=== PATIENT | female | born 1935 | race Caucasian/White ===

== ENCOUNTER 2016-10-17 14:03 | Inpatient (IN) | payer MEDICARE, BC ==
[2016-10-17] MEDS ORDERED: Albuterol/Ipratropium 3.0-0.5 MG/3 ML Neb Soln NEB PRN (14:59)
[2016-10-17] MEDS ORDERED: Acetaminophen 325 MG Tab PO PRN (14:59)
[2016-10-17] MEDS ORDERED: Ondansetron 4 MG/2 ML SDV IVPUSH PRN (14:59)
[2016-10-17] MEDS ORDERED: Diltiazem 25 MG/5 ML SDV IVPUSH ONE (15:14)
[2016-10-17] MEDS ORDERED: Diltiazem 100 MG in Sodium Chloride 0.9% 100 ML IV SCH (15:15)
[2016-10-17] MEDS ORDERED: Albuterol 8 GM Inhaler INH PRN (15:15)
--- NOTE | 2016-10-17 15:32 | PCM.HP ---
H&P History of Present Illness - General Admit Problem/Dx: Admission Diagnosis/Problem Admission Diagnosis/Problem Atrial fibrillation with normal ventricular rate - History of Present Illness Initial Comments - Free Text/Narative: 81 yo female with pmh of atrial fibrillation. She is normal rate controlled with metoprolol and diltiazem. She ran out of her diltiazem and has not taken any in the past two days. Early this morning she reported shortness of breath and palpitations. She denies any cough, chest pain or fevers. She was seen at [facility] an noted to have a heart rate of 160s with a rhythm of atrial fibrillation. - Related Data Allergies/Adverse Reactions: Allergies Allergy/AdvReac Type Severity Reaction Status Date / Time levofloxacin [From LevMabaya] Allergy Other Verified 01/18/15 14:40 Home Medications: Home Meds Niacin 500 mg PO BID 01/18/15 [History] Diltiazem [Cardizem CD] 240 mg PO DAILY #30 cap.cd 01/19/15 [Rx] Albuterol Sulfate [Proair Respiclick] 90 mcg IH QID PRN 10/17/16 [History] Apixaban [Eliquis] 5 mg PO BID 10/17/16 [History] Budesonide/Formoterol Fumarate [Symbicort 160-4.5 Mcg Inhaler] 2 puff INH BID [History] Cranberry 500 mg PO BEDTIME 10/17/16 [History] L.acidoph,Paracasei, B.lactis [Probiotic] 1 cap PO DAILY 10/17/16 [History] Metoprolol Succinate [Toprol XL] 25 mg PO DAILY 10/17/16 [History] Mirabegron [Myrbetriq] 25 mg PO BEDTIME 10/17/16 [History] Pantoprazole [ProTONIX] 40 mg PO DAILY 10/17/16 [History] Social & Family History - Tobacco Use Smoking Status *Q: Never Smoker Second Hand Smoke Exposure: No - Recreational Drug Use Recreational Drug Use: No H&P Review of Systems - Review of Systems: Review Of Systems: ROS reveals no pertinent complaints other than HPI. Exam - Exam Exam: See Below - Vital Signs Weight: 125 kg - Exam General: Alert, Oriented, 4 HEENT: Mucosa Moist & [place] Neck: Supple, Trachea Midline, 2 Lungs: Clear to Auscultation, Normal Respiratory Effort Cardiovascular: Regular Rate, Regular Rhythm GI/Abdominal Exam: Normal Bowel Sounds, Soft, Non-Tender, No Distention Extremities: Non-Tender, No Pedal Edema Skin: Warm, Dry, Intact - Patient Data Lab Results Last 24 hrs: Laboratory Results - last 24 hr 10/17/16 Range/Units 15:06 WBC 7.42 (4.0-11.0) K/uL RBC 4.14 L (4.30-5.90) M/uL Hgb 12.7 (12.0-16.0) g/dL Hct 38.0 (36.0-46.0) % MCV 91.8 (80.0-98.0) fL MCH 30.7 (27.0-32.0) pg MCHC 33.4 (31.0-37.0) g/dL RDW Std Deviation 50.8 (28.0-62.0) fl RDW Coeff of Kristen 15 (11.0-15.0) % Plt Count 213 (150-400) K/uL MPV 10.00 (7.40-12.00) fL Neut % (Auto) 61.9 (48.0-80.0) % Lymph % (Auto) 26.8 (16.0-40.0) % [place] % (Auto) 10.2 (0.0-15.0) % Eos % (Auto) 0.8 (0.0-7.0) % Baso % (Auto) 0.3 (0.0-1.5) % Neut # (Auto) 4.6 (1.4-5.7) K/uL Lymph # (Auto) 2.0 (0.6-2.4) K/uL [place] # (Auto) 0.8 (0.0-0.8) K/uL Eos # (Auto) 0.1 (0.0-0.7) K/uL Baso # (Auto) 0.0 (0.0-0.1) K/uL Nucleated RBC % 0.0 /100WBC Nucleated RBCs # 0 K/uL Result Diagrams: 10/17/16 15:06 *Q Meaningful Use (ADM) - VTE *Q VTE Criteria *Q: - Stroke *Q Stroke Criteria *Q: - AMI *Q AMI Criteria *Q: Problem List Initiated/Reviewed/Updated: Yes Orders Last 24hrs: Active Orders 24 hr Category Date Time Status Patient Status [ADT] Routine ADT 10/17/16 14:59 Ordered Antiembolic Devices [RC] PER UNIT ROUTINE Care 10/17/16 15:00 Ordered Cardiac Monitoring [RC] . DIRECTED Care 10/17/16 14:28 Active Cardiac Monitoring [RC] CONTINUOUS Care 10/17/16 15:00 Ordered EKG Documentation Completion [RC] STAT Care 10/17/16 14:28 Active Intake and Output [RC] QSHIFT Care 10/17/16 15:00 Ordered Oxygen Therapy [RC] PRN Care 10/17/16 14:59 Ordered RT Aerosol Therapy [RC] ASDIRECTED Care 10/17/16 15:01 Ordered VTE/DVT Education [RC] PER UNIT ROUTINE Care 10/17/16 14:59 Ordered Vital Signs [RC] Q4H Care 10/17/16 14:59 Ordered Regular Diet [DIET] Diet 10/17/16 Breakfast Ordered Chest 1V Frontal [CR] Routine Exams 10/17/16 14:35 Ordered BASIC METABOLIC PANEL,BMP [CHEM] AM Lab 10/18/16 05:11 Ordered BASIC METABOLIC PANEL,BMP [CHEM] AM Lab 10/19/16 05:11 Ordered BASIC METABOLIC PANEL,BMP [CHEM] AM Lab 10/20/16 05:11 Ordered CBC W/O DIFF,HEMOGRAM [HEME] AM Lab 10/18/16 05:11 Ordered CBC W/O DIFF,HEMOGRAM [HEME] AM Lab 10/19/16 05:11 Ordered CBC W/O DIFF,HEMOGRAM [HEME] AM Lab 10/20/16 05:11 Ordered CMP [COMPREHENSIVE METABOLIC PN,CMP] [CHEM] Routine Lab 10/17/16 14:32 Ordered DIGOXIN [CHEM] Routine Lab 10/17/16 14:50 Ordered MAGNESIUM [CHEM] Routine Lab 10/17/16 14:32 Ordered TROPONIN I [CHEM] Stat Lab 10/17/16 14:37 Ordered Acetaminophen [Tylenol] Med 10/17/16 14:59 Ordered 650 mg PO Q4H PRN Albuterol Sulfate [Proair Respiclick] Med 10/17/16 15:15 Ordered 90 mcg IH QID PRN Albuterol/Ipratropium [DuoNeb 3.0-0.5 MG/3 ML] Med 10/17/16 14:59 Ordered 3 ml NEB Q4HRRT PRN Apixaban [Eliquis] Med 10/17/16 21:00 Ordered 5 mg PO BID Budesonide/Formoterol Fumarate Med 10/17/16 21:00 Ordered 2 puff INH BID Diltiazem 100 MG in NS Adv@ 5 MG/HR(100ml) Med 10/17/16 15:15 Ordered Diltiazem [Cardizem] 100 mg Sodium Chloride 0.9% [Normal Saline] 100 ml IV TITRATE Diltiazem [Cardizem CD] Med 10/17/16 15:15 Ordered 240 mg PO DAILY Metoprolol Succinate [Toprol XL] Med 10/18/16 09:00 Ordered 25 mg PO DAILY Mirabegron Med 10/17/16 21:00 Ordered 25 mg PO BEDTIME Niacin Med 10/17/16 21:00 Ordered 500 mg PO BID Ondansetron [Zofran] Med 10/17/16 14:59 Ordered 4 mg IVPUSH Q4H PRN Pantoprazole [ProTONIX] Med 10/18/16 09:00 Ordered 40 mg PO DAILY Sodium Chloride 0.9% [Normal Saline] 1,000 ml Med 10/17/16 15:00 Ordered IV ASDIRECTED Sequential Compression Device [OM.PC] Per Unit Routine Oth 10/17/16 15:00 Ordered Resuscitation Status Routine Resus Stat 10/17/16 14:59 Ordered Medication Orders Acetaminophen (Tylenol) 650 mg PO Q4H PRN PRN Reason: Pain (Mild 1-3)/fever Albuterol/Ipratropium (Duoneb 3.0-0.5 Mg/3 Ml) 3 ml NEB Q4HRRT PRN PRN Reason: Shortness Of Breath/wheezing Sodium Chloride (Normal Saline) 1,000 mls @ 100 mls/hr IV ASDIRECTED ALFIE Diltiazem HCl 100 mg/ Sodium (Chloride) 100 mls @ 5 mls/hr IV TITRATE ALFIE; 5 MG /HR PRN Reason: Protocol Ondansetron HCl (Zofran) 4 mg IVPUSH Q4H PRN PRN Reason: Nausea Assessment/Plan Comment:: 81 yo female with pmh of atrial fibrillation who presents with a.fib with RVR likely 2/2 to the discontinuation of diltiazem. Will restart diltiazem and check EKG, CXR, CBC, and CMP.
[2016-10-17] MEDS: Sodium Chloride 0.9% 1,000 ML IV SCH (15:33)
[2016-10-17] MEDS ORDERED: Sodium Chloride 0.9% 10 ML Syringe FLUSH PRN (15:34)
[2016-10-17] MEDS ORDERED: Sodium Chloride 0.9% 2.5 ML Syringe FLUSH PRN (15:34)
[2016-10-17] MEDS: Diltiazem 120 MG Cap.CD PO SCH (15:36)
--- NOTE | 2016-10-17 15:40 | CR ---
EXAMINATION: Portable chest radiograph. HISTORY: A. Fib. Comparison: CT dated 01/19/2015 and radiographs dated 12/19/2012. FINDINGS: The trachea is midline. The cardiomediastinal silhouette is stable. There is a stable prominence of t he right hilar region. Chronic interstitial prominence also again noted. No pulmonary infiltrates, ef fusions or pneumothorax. Osseous structures appear unremarkable. IMPRESSION: Chronic interstitial changes without definite acute cardiopulmonary finding.
[2016-10-17 15:45] LABS: CHLORIDE,CL 104 mmol/L (98-110); SODIUM,NA 137 mmol/L (136-146)
[2016-10-17] MEDS ORDERED: Magnesium Sulfate/Water 2 GM in Premix Bag 1 BAG IV ONE (16:06)
[2016-10-17] MEDS: Apixaban 5 MG Tab PO SCH (20:07)
[2016-10-17] MEDS: Budesonide/Formoterol Fumarate 2 PUFF INH SCH (20:37)
[2016-10-17] MEDS: Niacin 500 MG Tab PO SCH (21:38)
[2016-10-18] MEDS: Sodium Chloride 0.9% 1,000 ML IV SCH (01:25)
[2016-10-18 05:45] LABS: CHLORIDE,CL 107 mmol/L (98-110); SODIUM,NA 139 mmol/L (136-146)
--- NOTE | 2016-10-18 06:21 | PCM.PN ---
- Review of Systems Systems Review Comment:: shortness of breath improving - Patient Data Vitals - Most Recent: Last Vital Signs Temp 36.6 C 10/18/16 04:00 Pulse 116 H 10/17/16 15:36 Resp 22 H 10/18/16 04:00 BP 135/79 10/18/16 04:00 Pulse Ox 87 L 10/18/16 04:00 Weight - Most Recent: 125 kg I&O - Last 24 Hours: Intake & Output 10/17/16 10/17/16 10/18/16 14:59 22:59 06:59 Intake Total 50 4 Output Total 2014 Balance 50 139 Lab Results Last 24 Hours: Laboratory Results - last 24 hr 10/17/16 10/17/16 10/17/16 Range/Units 15:06 15:06 15:06 WBC 7.42 (4.0-11.0) K/uL RBC 4.14 L (4.30-5.90) M/uL Hgb 12.7 (12.0-16.0) g/dL Hct 38.0 (36.0-46.0) % MCV 91.8 (80.0-98.0) fL MCH 30.7 (27.0-32.0) pg MCHC 33.4 (31.0-37.0) g/dL RDW Std Deviation 50.8 (28.0-62.0) fl RDW Coeff of Kristen 15 (11.0-15.0) % Plt Count 213 (150-400) K/uL MPV 10.00 (7.40-12.00) fL Neut % (Auto) 61.9 (48.0-80.0) % Lymph % (Auto) 26.8 (16.0-40.0) % [place] % (Auto) 10.2 (0.0-15.0) % Eos % (Auto) 0.8 (0.0-7.0) % Baso % (Auto) 0.3 (0.0-1.5) % Neut # (Auto) 4.6 (1.4-5.7) K/uL Lymph # (Auto) 2.0 (0.6-2.4) K/uL [place] # (Auto) 0.8 (0.0-0.8) K/uL Eos # (Auto) 0.1 (0.0-0.7) K/uL Baso # (Auto) 0.0 (0.0-0.1) K/uL Nucleated RBC % 0.0 /100WBC Nucleated RBCs # 0 K/uL Sodium 137 (136-146) mmol/L Potassium 4.3 (3.5-5.1) mmol/L Chloride 104 (98-110) mmol/L Carbon Dioxide 25 (21-31) mmol/L BUN 16 (6.0-23.0) mg/dL Creatinine 0.8 (0.6-1.5) mg/dL Est Cr Clr Drug Dosing 51.63 mL/min Estimated GFR (MDRD) > 60.0 ml/min Glucose 93 (60-110) mg/dL Calcium 9.9 (8.8-10.8) mg/dL Magnesium 1.3 L (1.5-2.3) mEq/L Total Bilirubin 0.9 (0.1-1.5) mg/dL AST 58 H (5-40) IU/L ALT 62 H (8-54) IU/L Alkaline Phosphatase 92 (40-150) Troponin I < 0.10 (0.0-0.29) NG/ML Total Protein 6.6 (6.0-8.0) g/dL Albumin 3.4 (3.4-4.8) g/dL Globulin 3.2 (2.0-3.5) g/dL Albumin/Globulin Ratio 1.1 L (1.3-2.8) Digoxin (0.8-2.0) ng/mL 10/17/16 10/18/16 10/18/16 Range/Units 15:06 04:50 04:50 WBC 7.54 (4.0-11.0) K/uL RBC 4.33 (4.30-5.90) M/uL Hgb 13.2 (12.0-16.0) g/dL Hct 40.1 (36.0-46.0) % MCV 92.6 (80.0-98.0) fL MCH 30.5 (27.0-32.0) pg MCHC 32.9 (31.0-37.0) g/dL RDW Std Deviation 51.2 (28.0-62.0) fl RDW Coeff of Kristen 15 (11.0-15.0) % Plt Count 211 (150-400) K/uL MPV 10.30 (7.40-12.00) fL Neut % (Auto) (48.0-80.0) % Lymph % (Auto) (16.0-40.0) % [place] % (Auto) (0.0-15.0) % Eos % (Auto) (0.0-7.0) % Baso % (Auto) (0.0-1.5) % Neut # (Auto) (1.4-5.7) K/uL Lymph # (Auto) (0.6-2.4) K/uL [place] # (Auto) (0.0-0.8) K/uL Eos # (Auto) (0.0-0.7) K/uL Baso # (Auto) (0.0-0.1) K/uL Nucleated RBC % 0.0 /100WBC Nucleated RBCs # 0 K/uL Sodium 139 (136-146) mmol/L Potassium 4.2 (3.5-5.1) mmol/L Chloride 107 (98-110) mmol/L Carbon Dioxide 23 (21-31) mmol/L BUN 16 (6.0-23.0) mg/dL Creatinine 0.7 (0.6-1.5) mg/dL Est Cr Clr Drug Dosing 59.01 mL/min Estimated GFR (MDRD) > 60.0 ml/min Glucose 101 (60-110) mg/dL Calcium 9.4 (8.8-10.8) mg/dL Magnesium (1.5-2.3) mEq/L Total Bilirubin (0.1-1.5) mg/dL AST (5-40) IU/L ALT (8-54) IU/L Alkaline Phosphatase (40-150) Troponin I (0.0-0.29) NG/ML Total Protein (6.0-8.0) g/dL Albumin (3.4-4.8) g/dL Globulin (2.0-3.5) g/dL Albumin/Globulin Ratio (1.3-2.8) Digoxin < 0.15 L (0.8-2.0) ng/mL Med Orders - Current: Current Medications Acetaminophen (Tylenol) 650 mg PO Q4H PRN PRN Reason: Pain (Mild 1-3)/fever Albuterol (Ventolin Hfa) 8 gm INH QID PRN PRN Reason: Wheezing Albuterol/Ipratropium (Duoneb 3.0-0.5 Mg/3 Ml) 3 ml NEB Q4HRRT PRN PRN Reason: Shortness Of Breath/wheezing Apixaban (Eliquis) 5 mg PO BID [facility] Last Admin: 10/17/16 20:07 Dose: 5 mg Diltiazem HCl (Cardizem Cd) 240 mg PO DAILY [facility] Last Admin: 10/17/16 15:36 Dose: 240 mg Diltiazem HCl 100 mg/ Sodium (Chloride) 100 mls @ 5 mls/hr IV TITRATE ALFIE; 5 MG /HR PRN Reason: Protocol Last Titration: 10/18/16 04:40 Dose: 5 mg/hr, 5 mls/hr Metoprolol Succinate (Toprol Xl) 50 mg PO DAILY [facility] Niacin (Niacin) 500 mg PO BID [facility] Last Admin: 10/17/16 21:38 Dose: 500 mg Ondansetron HCl (Zofran) 4 mg IVPUSH Q4H PRN PRN Reason: Nausea Pantoprazole Sodium (Protonix) 40 mg PO DAILY [facility] Budesonide/Formoterol Fumarate 2 Puff 1 each INH BID [facility] Last Admin: 10/17/16 20:37 Dose: 1 each Mirabegron 25 Mg 1 each PO BEDTIME [facility] Last Admin: 10/17/16 21:23 Dose: Not Given Sodium Chloride (Saline Flush) 10 ml FLUSH ASDIRECTED PRN PRN Reason: Keep Vein Open Sodium Chloride (Saline Flush) 2.5 ml FLUSH ASDIRECTED PRN PRN Reason: Keep Vein Open Discontinued Medications Diltiazem HCl (Diltiazem) 10 mg IVPUSH ONETIME ONE Stop: 10/17/16 15:15 Last Admin: 10/17/16 15:24 Dose: 10 mg Sodium Chloride (Normal Saline) 1,000 mls @ 100 mls/hr IV ASDIRECTED [facility] Last Admin: 10/18/16 01:25 Dose: 100 mls/hr Magnesium Sulfate 2 gm/ Premix 50 mls @ 50 mls/hr IV ONETIME ONE Stop: 10/17/16 17:05 Last Admin: 10/17/16 16:38 Dose: 50 mls/hr Metoprolol Succinate (Toprol Xl) 25 mg PO DAILY ALFIE - Exam General: Alert, Oriented Lungs: Clear to Auscultation, Normal Respiratory Effort Cardiovascular: Regular Rate, Irregular Rhythm Extremities: Normal Inspection, No Pedal Edema - Problem List Review Problem List Initiated/Reviewed/Updated: Yes - My Orders Last 24 Hours: My Active Orders 10/17/16 14:28 Cardiac Monitoring [RC] . DIRECTED 10/17/16 14:59 Patient Status [ADT] Routine Oxygen Therapy [RC] PRN Vital Signs [RC] Q1H Acetaminophen [Tylenol] 650 mg PO Q4H PRN Albuterol/Ipratropium [DuoNeb 3.0-0.5 MG/3 ML] 3 ml NEB Q4HRRT PRN Ondansetron [Zofran] 4 mg IVPUSH Q4H PRN Resuscitation Status Routine 10/17/16 15:00 Antiembolic Devices [RC] PER UNIT ROUTINE Cardiac Monitoring [RC] Q8H Intake and Output [RC] Q12H Sequential Compression Device [OM.PC] Per Unit Routine 10/17/16 15:01 RT Aerosol Therapy [RC] ASDIRECTED 10/17/16 15:15 Albuterol [Ventolin HFA] 8 gm INH QID PRN Diltiazem [Cardizem CD] 240 mg PO DAILY Diltiazem [Cardizem] 100 mg Sodium Chloride 0.9% [Normal Saline] 100 ml IV TITRATE 10/17/16 15:34 Sodium Chloride 0.9% [Saline Flush] 10 ml FLUSH ASDIRECTED PRN Sodium Chloride 0.9% [Saline Flush] 2.5 ml FLUSH ASDIRECTED PRN Peripheral IV Insertion Adult [OM.PC] Routine 10/17/16 21:00 Apixaban [Eliquis] 5 mg PO BID Niacin 500 mg PO BID Patient's Own Medication [Ptom] 1 each INH BID Patient's Own Medication [Ptom] 1 each PO BEDTIME 10/17/16 Breakfast Regular Diet [DIET] 10/18/16 06:16 MAGNESIUM [CHEM] Routine 10/18/16 09:00 Metoprolol Succinate [Toprol XL] 50 mg PO DAILY Pantoprazole [ProTONIX] 40 mg PO DAILY 10/19/16 05:11 BASIC METABOLIC PANEL,BMP [CHEM] AM CBC W/O DIFF,HEMOGRAM [HEME] AM 10/20/16 05:11 BASIC METABOLIC PANEL,BMP [CHEM] AM CBC W/O DIFF,HEMOGRAM [HEME] AM - Plan Plan:: 81 yo female with pmh of atrial fibrillation who presents with a.fib with RVR likely 2/2 to the discontinuation of diltiazem. On diltiazem will attempt to wean off, will increase oral metoprolol and diltiazem continue Eliquis CXR shows bibasilar infiltrates concerning for pulmonary edema will treat with IV lasix
[2016-10-18] MEDS: Apixaban 5 MG Tab PO SCH ×2 (08:40→20:30)
[2016-10-18] MEDS: Pantoprazole 40 MG Tab.CR PO SCH (08:40)
[2016-10-18] MEDS: Diltiazem 120 MG Cap.CD PO SCH (08:40)
[2016-10-18] MEDS: Metoprolol Succinate 25 MG Tab.ER PO SCH (08:42)
[2016-10-18] MEDS ORDERED: Metoprolol Succinate 25 MG Tab.ER PO SCH (09:00)
--- NOTE | 2016-10-18 09:38 | CR ---
EXAMINATION: Two-view chest (PA and Lateral views). HISTORY: Increased O2 requirement. FINDINGS: The trachea is midline. The heart is borderline in size. There are increasing bibasilar infiltrates n oted. Trace bilateral pleural effusions are not excluded. No pneumothorax. Osseous structures appear osteopenic. IMPRESSION: Moderate bibasilar infiltrates, possibly representing developing pneumonia versus edema.
[2016-10-18] MEDS: Budesonide/Formoterol Fumarate 2 PUFF INH SCH ×2 (09:43→20:25)
[2016-10-18] MEDS: Niacin 500 MG Tab PO SCH ×2 (10:04→20:30)
[2016-10-18] MEDS ORDERED: Furosemide 40 MG/4 ML VIAL IVPUSH ONE (10:16)
[2016-10-18] MEDS ORDERED: Magnesium Sulfate/Water 2 GM in Premix Bag 1 BAG IV ONE (10:17)
[2016-10-19 06:12] LABS: CHLORIDE,CL 104 mmol/L (98-110); SODIUM,NA 138 mmol/L (136-146)
[2016-10-19] MEDS: Niacin 500 MG Tab PO SCH (08:17)
[2016-10-19] MEDS: Diltiazem 120 MG Cap.CD PO SCH (08:17)
[2016-10-19] MEDS: Metoprolol Succinate 25 MG Tab.ER PO SCH (08:18)
[2016-10-19 08:19] VITALS: BP 121/73
[2016-10-19] MEDS: Apixaban 5 MG Tab PO SCH (08:19)
[2016-10-19] MEDS: Pantoprazole 40 MG Tab.CR PO SCH (08:19)
[2016-10-19] MEDS ORDERED: Furosemide 40 MG Tab PO ONE (08:35)
[2016-10-19] MEDS ORDERED: Potassium Chloride 20 MEQ Tab.ER PO ONE (08:35)
[2016-10-19] MEDS: Budesonide/Formoterol Fumarate 2 PUFF INH SCH (09:25)
--- NOTE | 2016-10-19 10:26 | PCM.DCSUM1 ---
Discharge Summary - Discharge Data Discharge Date: 10/19/16 Discharge Disposition: Home, Self-Care 01 Condition: Good - Patient Summary/Data Hospital Course: Admission diagnosis Atrial fibrillation with RVR Hospital course: 81 yo female with pmh of atrial fibrillation who presented with shortness of breath and palpitations. She ran out of her diltiazem and has not taken any in the past two days. She is normally rate controlled with metoprolol and diltiazem and takes Eliquis. She was seen at [facility] noted to have a heart rate of 160s with a rhythm of atrial fibrillation. She was directly admitted to the ICU and started on a diltiazem drip with IV fluids. She was given IV magnesium due to low magnesium level of 1.3. Her oral diltiazem was restarted and she was weaned of her diltiazem drip. She did develop worsening shortness of breath and repeat CXR was consistent with pulmonary edema. She was given lasix with quick improvement in her dsypnea. Echocardiogram was taken but report is pending at time of discharge. Patient this morning is requesting discharge home. She was discharged home to have follow up with Dr. Lomeli. She is satting 92% on room air at time discharge. - Patient Instructions Diet: Usual Diet as Tolerated Activity: As Tolerated - Discharge Plan Home Medications: Home Meds Niacin 500 mg PO BID 01/18/15 [History] Diltiazem [Cardizem CD] 240 mg PO DAILY #30 cap.cd 01/19/15 [Rx] Albuterol Sulfate [Proair Respiclick] 90 mcg IH QID PRN 10/17/16 [History] Apixaban [Eliquis] 5 mg PO BID 10/17/16 [History] Budesonide/Formoterol Fumarate [Symbicort 160-4.5 Mcg Inhaler] 2 puff INH BID [History] Cranberry 500 mg PO BEDTIME 10/17/16 [History] L.acidoph,Paracasei, B.lactis [Probiotic] 1 cap PO DAILY 10/17/16 [History] Metoprolol Succinate [Toprol XL] 25 mg PO DAILY 10/17/16 [History] Mirabegron [Myrbetriq] 25 mg PO BEDTIME 10/17/16 [History] Pantoprazole [ProTONIX] 40 mg PO DAILY 10/17/16 [History] Patient Handouts: Atrial Fibrillation, [id number] Referrals: [facility] [Outside] Reinier Rodriguez MD [Physician] - 10/27/16 10:00 am - Patient Data Vitals - Most Recent: Last Vital Signs Temp 37.1 C 10/19/16 08:00 Pulse 95 10/19/16 08:18 Resp 16 10/19/16 08:00 BP 121/73 10/19/16 08:18 Pulse Ox 95 10/19/16 09:00 Weight - Most Recent: 60 kg I&O - Last 24 hours: Intake & Output 10/18/16 10/19/16 10/19/16 22:59 06:59 14:59 Intake Total 700 450 Output Total 2950 600 Balance -2250 -150 Lab Results - Last 24 hrs: Laboratory Results - last 24 hr 10/19/16 10/19/16 Range/Units 05:28 05:28 WBC 6.72 (4.0-11.0) K/uL RBC 4.20 L (4.30-5.90) M/uL Hgb 12.9 (12.0-16.0) g/dL Hct 38.3 (36.0-46.0) % MCV 91.2 (80.0-98.0) fL MCH 30.7 (27.0-32.0) pg MCHC 33.7 (31.0-37.0) g/dL RDW Std Deviation 49.7 (28.0-62.0) fl RDW Coeff of Kristen 15 (11.0-15.0) % Plt Count 192 (150-400) K/uL MPV 10.00 (7.40-12.00) fL Nucleated RBC % 0.0 /100WBC Nucleated RBCs # 0 K/uL Sodium 138 (136-146) mmol/L Potassium 3.5 (3.5-5.1) mmol/L Chloride 104 (98-110) mmol/L Carbon Dioxide 26 (21-31) mmol/L BUN 16 (6.0-23.0) mg/dL Creatinine 0.6 (0.6-1.5) mg/dL Est Cr Clr Drug Dosing 69.22 mL/min Estimated GFR (MDRD) > 60.0 ml/min Glucose 102 (60-110) mg/dL Calcium 9.4 (8.8-10.8) mg/dL Med Orders - Current: Current Medications Acetaminophen (Tylenol) 650 mg PO Q4H PRN PRN Reason: Pain (Mild 1-3)/fever Albuterol (Ventolin Hfa) 8 gm INH QID PRN PRN Reason: Wheezing Albuterol/Ipratropium (Duoneb 3.0-0.5 Mg/3 Ml) 3 ml NEB Q4HRRT PRN PRN Reason: Shortness Of Breath/wheezing Apixaban (Eliquis) 5 mg PO BID [facility] Last Admin: 10/19/16 08:19 Dose: 5 mg Diltiazem HCl (Cardizem Cd) 240 mg PO DAILY [facility] Last Admin: 10/19/16 08:17 Dose: 240 mg Diltiazem HCl 100 mg/ Sodium (Chloride) 100 mls @ 5 mls/hr IV TITRATE ALFIE; 5 MG /HR PRN Reason: Protocol Last Titration: 10/18/16 09:00 Dose: 0 mg/hr, 0 mls/hr Metoprolol Succinate (Toprol Xl) 50 mg PO DAILY [facility] Last Admin: 10/19/16 08:18 Dose: 50 mg Niacin (Niacin) 500 mg PO BID [facility] Last Admin: 10/19/16 08:17 Dose: 500 mg Ondansetron HCl (Zofran) 4 mg IVPUSH Q4H PRN PRN Reason: Nausea Pantoprazole Sodium (Protonix) 40 mg PO DAILY [facility] Last Admin: 10/19/16 08:19 Dose: 40 mg Budesonide/Formoterol Fumarate 2 Puff 1 each INH BID [facility] Last Admin: 10/19/16 09:25 Dose: 1 each Mirabegron 25 Mg 1 each PO BEDTIME [facility] Last Admin: 10/18/16 22:41 Dose: 1 each Sodium Chloride (Saline Flush) 10 ml FLUSH ASDIRECTED PRN PRN Reason: Keep Vein Open Sodium Chloride (Saline Flush) 2.5 ml FLUSH ASDIRECTED PRN PRN Reason: Keep Vein Open Discontinued Medications Diltiazem HCl (Diltiazem) 10 mg IVPUSH ONETIME ONE Stop: 10/17/16 15:15 Last Admin: 10/17/16 15:24 Dose: 10 mg Furosemide (Lasix) 40 mg IVPUSH NOW ONE Stop: 10/18/16 10:17 Last Admin: 10/18/16 10:32 Dose: 40 mg Furosemide (Lasix) 40 mg PO ONETIME ONE Stop: 10/19/16 08:36 Last Admin: 10/19/16 08:44 Dose: 40 mg Sodium Chloride (Normal Saline) 1,000 mls @ 100 mls/hr IV ASDIRECTED [facility]FIE Last Admin: 10/18/16 01:25 Dose: 100 mls/hr Magnesium Sulfate 2 gm/ Premix 50 mls @ 50 mls/hr IV ONETIME ONE Stop: 10/17/16 17:05 Last Admin: 10/17/16 16:38 Dose: 50 mls/hr Magnesium Sulfate 2 gm/ Premix 50 mls @ 50 mls/hr IV ONETIME ONE Stop: 10/18/16 11:16 Last Admin: 10/18/16 10:33 Dose: 50 mls/hr Metoprolol Succinate (Toprol Xl) 25 mg PO DAILY [facility] Potassium Chloride (Klor-Con M20) 40 meq PO ONETIME ONE Stop: 10/19/16 08:36 Last Admin: 10/19/16 08:44 Dose: 40 meq *Q Meaningful Use (DIS) - VTE *Q VTE Criteria *Q: - Stroke *Q Stroke Criteria *Q: - AMI *Q AMI Criteria *Q:
--- NOTE | 2016-10-21 11:19 | ECHO ---
EXAM DATE: 10/17/16 PATIENT'S AGE: 81 The echocardiogram report can be seen in this patient's EMR (Electronic Medical Record) in the Reports section. The report has also been scanned into PACS. CHUCK
== END 2016-10-19 11:45 | disposition home or self-care (01) | DRG 309 ==
LOC: INTOOBSV 14:03 → MW.ICU 14:03 → OBSVTOIN 14:59 → MW.MS 10-18 16:15
PROVIDERS: ADMIT Internal Medicine; ATTEND Internal Medicine
DX: I48.91 Unspecified atrial fibrillation (principal); J81.1 Chronic pulmonary edema; Z79.899 Other long term (current) drug therapy; Z88.8 Allergy status to other drugs, medicaments and biological substances
CPT/HCPCS: 36415; 71010; 71010-26; 71020; 71020-26; 80048; 80053; 80162; 83735; 84484; 85025; 85027; 93005; 93306; 94640; 94664; A9270-GY; J1940; J3475; J3490; J7030; J7040

== ENCOUNTER 2016-12-08 19:05 | Observation (INO) | payer MEDICARE, BC ==
--- NOTE | 2016-12-08 19:17 | EDM.PDOC ---
ED HPI GENERAL MEDICAL PROBLEM - General Chief Complaint: Neurological Problem Stated Complaint: DIZZY/STOMACH PAIN/VOMITING Time Seen by Provider: 12/08/16 19:12 - History of Present Illness INITIAL COMMENTS - FREE TEXT/NARRATIVE: HISTORY AND PHYSICAL: History of present illness: Patient 31-year-old female history of atrial fibrillation and presented with a concern of dizziness with nausea and vomiting she denies abdominal pain chest pain other concern she states she occasionally has shortness of breath she denies any on arrival she's had prior cholecystectomy and hysterectomy. Review of systems: As per history of present illness and below otherwise all systems reviewed and negative. Past medical history: As per history of present illness and as reviewed below otherwise noncontributory. Surgical history: As per history of present illness and as reviewed below otherwise noncontributory. Social history: No reported history of drug or alcohol abuse. Family history: As per history of present illness and as reviewed below otherwise noncontributory. Physical exam: HEENT: Atraumatic, normocephalic, pupils reactive, negative for conjunctival pallor or scleral icterus, mucous membranes moist, throat clear, neck supple, nontender, trachea midline. Lungs: Clear to auscultation, breath sounds equal bilaterally, chest nontender. Heart: S1S2, , negative for clicks, rubs, or JVD. Abdomen: Soft, nondistended, nontender. Negative for masses or hepatosplenomegaly. Negative for costovertebral tenderness. Pelvis: Stable nontender. Genitourinary: Deferred. Rectal: Deferred. Extremities: Atraumatic, negative for cords or calf pain. Neurovascular unremarkable. Neuro: Awake, alert, oriented. Cranial nerves II through XII unremarkable. Cerebellum unremarkable. Motor and sensory unremarkable throughout. Exam nonfocal. Diagnostics: CBC CMP troponin PT/INR lipase chest x-ray EKG CT brain orthostatic vital signs Therapeutics: Normal saline 500 mL bolus O2 monitor Impression: #1 dizziness with vomiting Definitive disposition and diagnosis as appropriate pending reevaluation and review of above. - Related Data Allergies Allergy/AdvReac Type Severity Reaction Status Date / Time clarithromycin Allergy Other Verified 10/17/16 18:13 levofloxacin [From Levaquin] Allergy Other Verified 01/18/15 14:40 lisinopril Allergy Other Verified 10/17/16 18:13 losartan Allergy Other Verified 10/17/16 18:13 Home Meds: Home Meds Niacin 500 mg PO BID 01/18/15 [History] Diltiazem [Cardizem CD] 240 mg PO DAILY #30 cap.cd 01/19/15 [Rx] Albuterol Sulfate [Proair Respiclick] 90 mcg IH QID PRN 10/17/16 [History] Apixaban [Eliquis] 5 mg PO BID 10/17/16 [History] Budesonide/Formoterol Fumarate [Symbicort 160-4.5 Mcg Inhaler] 2 puff INH BID [History] Cranberry 500 mg PO BEDTIME 10/17/16 [History] L.acidoph,Paracasei, B.lactis [Probiotic] 1 cap PO DAILY 10/17/16 [History] Metoprolol Succinate [Toprol XL] 25 mg PO DAILY 10/17/16 [History] Mirabegron [Myrbetriq] 25 mg PO BEDTIME 10/17/16 [History] Pantoprazole [ProTONIX] 40 mg PO DAILY 10/17/16 [History] Past Medical History HEENT History: Reports: Impaired Vision Cardiovascular History: Reports: Afib Respiratory History: Reports: Asthma, 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: , Prolapsed Uterus, Other (See Below) Other OB/BYN History: Hysterectomy Musculoskeletal History: Reports: Arthritis, Back Pain, Chronic - Past Surgical History GI Surgical History: Reports: Cholecystectomy, Colonoscopy, EGD, Other (See Below) Other GI Surgeries/Procedures: Acid reflux Social & Family History - Family History Family Medical History: Noncontributory - Tobacco Use Smoking Status *Q: Never Smoker Second Hand Smoke Exposure: No - Caffeine Use Caffeine Use: Reports: Coffee, Soda Other Caffeine Use: daily coffee - Recreational Drug Use Recreational Drug Use: No ED ROS GENERAL - Review of Systems Review Of Systems: ROS reveals no pertinent complaints other than HPI. ED EXAM, GENERAL - Physical Exam Exam: See Below (See dictation) Course - Vital Signs Last Recorded V/S: Last Vital Signs Temp 36.6 C 12/08/16 19:13 Pulse 102 H 12/08/16 19:13 Resp 20 12/08/16 19:13 BP 131/92 H 12/08/16 19:13 Pulse Ox 96 12/08/16 19:13 - Orders/Labs/Meds Orders: Active Orders 24 hr Category Date Time Status Cardiac Monitoring [RC] . DIRECTED Care 12/08/16 19:15 Active EKG Documentation Completion [RC] STAT Care 12/08/16 19:15 Active Orthostatic Vital Signs [RC] ASDIRECTED Care 12/08/16 19:18 Active Chest 1V Frontal [CR] Stat Exams 12/08/16 19:15 Taken Head wo Cont [CT] Stat Exams 12/08/16 19:17 Taken Sodium Chloride 0.9% [Normal Saline] 500 ml Med 12/08/16 19:30 Active IV .BOLUS Medication Orders Sodium Chloride (Normal Saline) 500 mls @ 999 mls/hr IV .BOLUS ALFIE Last Admin: 12/08/16 19:31 Dose: 999 mls/hr Labs: Laboratory Tests 12/08/16 12/08/16 12/08/16 Range/Units 19:25 19:25 19:25 WBC 7.79 (4.0-11.0) K/uL RBC 4.28 L (4.30-5.90) M/uL Hgb 13.1 (12.0-16.0) g/dL Hct 39.2 (36.0-46.0) % MCV 91.6 (80.0-98.0) fL MCH 30.6 (27.0-32.0) pg MCHC 33.4 (31.0-37.0) g/dL RDW Std Deviation 45.3 (28.0-62.0) fl RDW Coeff of Kristen 14 (11.0-15.0) % Plt Count 223 (150-400) K/uL MPV 9.80 (7.40-12.00) fL Neut % (Auto) 74.6 (48.0-80.0) % Lymph % (Auto) 16.8 (16.0-40.0) % [place] % (Auto) 7.8 (0.0-15.0) % Eos % (Auto) 0.5 (0.0-7.0) % Baso % (Auto) 0.3 (0.0-1.5) % Neut # (Auto) 5.8 H (1.4-5.7) K/uL Lymph # (Auto) 1.3 (0.6-2.4) K/uL [place] # (Auto) 0.6 (0.0-0.8) K/uL Eos # (Auto) 0.0 (0.0-0.7) K/uL Baso # (Auto) 0.0 (0.0-0.1) K/uL Nucleated RBC % 0.0 /100WBC Nucleated RBCs # 0 K/uL INR 1.13 H (0.86-1.11) Sodium 137 (136-146) mmol/L Potassium 3.6 (3.5-5.1) mmol/L Chloride 101 (98-110) mmol/L Carbon Dioxide 24 (21-31) mmol/L BUN 18 (6.0-23.0) mg/dL Creatinine 0.8 (0.6-1.5) mg/dL Est Cr Clr Drug Dosing TNP Estimated GFR (MDRD) > 60.0 ml/min Glucose 121 H (60-110) mg/dL Calcium 10.1 (8.8-10.8) mg/dL Total Bilirubin 0.6 (0.1-1.5) mg/dL AST 26 (5-40) IU/L ALT 26 (8-54) IU/L Alkaline Phosphatase 98 (40-150) CK-MB (CK-2) 1.7 (0-6.6) ng/ml Troponin I < 0.10 (0.0-0.29) NG/ML Total Protein 7.2 (6.0-8.0) g/dL Albumin 3.6 (3.4-4.8) g/dL Globulin 3.6 H (2.0-3.5) g/dL Albumin/Globulin Ratio 1.0 L (1.3-2.8) Lipase 16 (7-80) U/L Meds: Medications Generic Name Dose Route Start Last Admin Trade Name Freq PRN Reason Stop Dose Admin Sodium Chloride 500 mls @ 999 mls/hr 12/08/16 19:30 12/08/16 19:31 Normal Saline IV 999 mls/hr .BOLUS ALFIE Administration Departure - Departure Time of Disposition: 20:21 Disposition: Refer to Observation Condition: Good Clinical Impression: Dizziness, Vomiting, Atrial fibrillation - Discharge Information Referrals: Reinier Rodriguez MD [Primary Care Provider] - Forms: ED Department Discharge - My Orders Last 24 Hours: My Active Orders 12/08/16 19:15 Cardiac Monitoring [RC] . DIRECTED EKG Documentation Completion [RC] STAT Chest 1V Frontal [CR] Stat 12/08/16 19:17 Head wo Cont [CT] Stat 12/08/16 19:18 Orthostatic Vital Signs [RC] ASDIRECTED 12/08/16 19:30 Sodium Chloride 0.9% [Normal Saline] 500 ml IV .BOLUS - Assessment/Plan Last 24 Hours: My Active Orders 12/08/16 19:15 Cardiac Monitoring [RC] . DIRECTED EKG Documentation Completion [RC] STAT Chest 1V Frontal [CR] Stat 12/08/16 19:17 Head wo Cont [CT] Stat 12/08/16 19:18 Orthostatic Vital Signs [RC] ASDIRECTED 12/08/16 19:30 Sodium Chloride 0.9% [Normal Saline] 500 ml IV .BOLUS
[2016-12-08] MEDS ORDERED: Sodium Chloride 0.9% 500 ML IV SCH (19:30)
[2016-12-08 19:49] LABS: CHLORIDE,CL 101 mmol/L (98-110); SODIUM,NA 137 mmol/L (136-146)
[2016-12-08] MEDS ORDERED: Albuterol 90 MCG/6.7 GM Inhaler INH PRN (21:37)
[2016-12-08] MEDS ORDERED: Ondansetron 4 MG/2 ML SDV IVPUSH PRN (21:42)
[2016-12-08] MEDS ORDERED: Pantoprazole 40 MG in Sodium Chloride 0.9% 10 ML IVPUSH ONE (21:49)
--- NOTE | 2016-12-08 21:49 | PCM.HP ---
H&P History of Present Illness - General Date of Service: 12/08/16 Admit Problem/Dx: Admission Diagnosis/Problem Admission Diagnosis/Problem Dizziness - History of Present Illness Initial Comments - Free Text/Narative: 81 yo female with pmh of atrial fibrillation who presents with dizziness, nausea and vomiting. She reports throwing up twice this evening. She felt dizzy before but felt better after vomiting. She reports generalized weakness following vomiting but is feeling close to her baseline health. - Related Data Allergies/Adverse Reactions: Allergies Allergy/AdvReac Type Severity Reaction Status Date / Time ciprofloxacin Allergy unknown Verified 12/09/16 00:38 clarithromycin Allergy Other Verified 12/09/16 00:38 levofloxacin [From Levaquin] Allergy Other Verified 12/09/16 00:38 lisinopril Allergy Other Verified 12/09/16 00:38 losartan Allergy Other Verified 12/09/16 00:38 Home Medications: Home Meds Niacin 500 mg PO BID 01/18/15 [History] Apixaban [Eliquis] 5 mg PO BID 10/17/16 [History] Budesonide/Formoterol Fumarate [Symbicort 160-4.5 Mcg Inhaler] 2 puff INH BID [History] L.acidoph,Paracasei, B.lactis [Probiotic] 1 cap PO DAILY 10/17/16 [History] Mirabegron [Myrbetriq] 25 mg PO BEDTIME 10/17/16 [History] Diltiazem HCl [Diltiazem ER] 360 mg PO DAILY 12/08/16 [History] Metoprolol Succinate [Toprol XL] 50 mg PO DAILY 12/08/16 [History] Past Medical History HEENT History: Reports: Impaired Vision Cardiovascular History: Reports: Afib Respiratory History: Reports: Asthma, 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: , Prolapsed Uterus, Other (See Below) Other OB/BYN History: Hysterectomy Musculoskeletal History: Reports: Arthritis, Back Pain, Chronic - Past Surgical History GI Surgical History: Reports: Cholecystectomy, Colonoscopy, EGD, Other (See Below) Other GI Surgeries/Procedures: Acid reflux Social & Family History - Family History Family Medical History: Noncontributory - Tobacco Use Smoking Status *Q: Never Smoker Second Hand Smoke Exposure: No - Caffeine Use Caffeine Use: Reports: Coffee, Soda Other Caffeine Use: daily coffee - Recreational Drug Use Recreational Drug Use: No H&P Review of Systems - Review of Systems: Review Of Systems: ROS reveals no pertinent complaints other than HPI. Exam - Exam Exam: See Below - Vital Signs Vital Signs: Last Vital Signs Temp 36.7 C 12/08/16 20:35 Pulse 99 12/08/16 20:35 Resp 18 12/08/16 20:35 BP 124/73 12/08/16 20:35 Pulse Ox 93 L 12/08/16 20:35 Weight: 58.513 kg - Exam General: Alert, Oriented Lungs: Clear to Auscultation, Normal Respiratory Effort Cardiovascular: Regular Rate, Irregular Rhythm GI/Abdominal Exam: Normal Bowel Sounds, Soft, Non-Tender Extremities: Non-Tender, No Pedal Edema Skin: Warm, Dry, Intact - Patient Data Result Diagrams: 12/08/16 19:25 12/08/16 19:25 *Q Meaningful Use (ADM) - VTE *Q VTE Criteria *Q: - Stroke *Q Stroke Criteria *Q: - AMI *Q AMI Criteria *Q: Problem List Initiated/Reviewed/Updated: Yes Orders Last 24hrs: Active Orders 24 hr Category Date Time Status Antiembolic Devices [RC] PER UNIT ROUTINE Care 12/08/16 21:43 Ordered Intake and Output [RC] QSHIFT Care 12/08/16 21:42 Ordered Oxygen Therapy [RC] PRN Care 12/08/16 21:42 Ordered Up ad Gail [RC] ASDIRECTED Care 12/08/16 21:42 Ordered VTE/DVT Education [RC] PER UNIT ROUTINE Care 12/08/16 21:42 Ordered Vital Signs [RC] Q4H Care 12/08/16 21:42 Ordered Regular Diet [DIET] Diet 12/08/16 Breakfast Ordered Albuterol Sulfate [Proair Respiclick] Med 12/08/16 21:37 Ordered 90 mcg IH QID PRN Apixaban [Eliquis] Med 12/08/16 21:45 Ordered 5 mg PO BID Budesonide/Formoterol Med 12/09/16 09:00 Ordered 2 puff INH BID Diltiazem [Cardizem CD] Med 12/09/16 09:00 Ordered 360 mg PO DAILY Metoprolol Succinate [Toprol XL] Med 12/09/16 09:00 Ordered 50 mg PO DAILY Mirabegron Med 12/09/16 21:00 Ordered 25 mg PO BEDTIME Niacin Med 12/09/16 09:00 Ordered 500 mg PO BID Ondansetron [Zofran] Med 12/08/16 21:42 Ordered 4 mg IVPUSH Q4H PRN Pantoprazole [ProTONIX] Med 12/09/16 09:00 Ordered 40 mg PO DAILY Sequential Compression Device [OM.PC] Per Unit Routine Oth 12/08/16 21:43 Ordered Resuscitation Status Routine Resus Stat 12/08/16 21:42 Ordered Medication Orders Apixaban (Eliquis) 5 mg PO BID ALFIE Diltiazem HCl (Cardizem Cd) 360 mg PO DAILY [facility] Sodium Chloride (Normal Saline) 500 mls @ 999 mls/hr IV .BOLUS ALFIE Last Admin: 12/08/16 19:31 Dose: 999 mls/hr Metoprolol Succinate (Toprol Xl) 50 mg PO DAILY [facility] Niacin (Niacin) 500 mg PO BID [facility] Non-Formulary Medication (Albuterol Sulfate [Proair Respiclick]) 90 mcg IH QID PRN PRN Reason: Wheezing Non-Formulary Medication (Budesonide/Formoterol) 2 puff INH BID ALFIE Non-Formulary Medication (Mirabegron) 25 mg PO BEDTIME ALFIE Pantoprazole Sodium (Protonix) 40 mg PO DAILY [facility] Assessment/Plan Comment:: 81 yo female who presented nausea, vomiting, and dizziness which have resolved prior to admission. I suspect gastritis as potential cause of symptoms but could also be arrhythmia causing dizziness. She was monitored overnight with no events on telemetry. She is being discharged home today.
[2016-12-08] MEDS ORDERED: Apixaban 2.5 MG Tab PO SCH (23:00)
[2016-12-08] MEDS: Apixaban 5 MG Tab PO SCH (23:48)
[2016-12-09] MEDS ORDERED: Pantoprazole 40 MG Tab.CR PO SCH (07:30)
[2016-12-09] MEDS: Apixaban 5 MG Tab PO SCH (08:37)
[2016-12-09] MEDS ORDERED: Diltiazem 180 MG Cap.CD PO SCH (09:00)
[2016-12-09] MEDS ORDERED: FORMOTEROL INH SCH (09:00)
[2016-12-09] MEDS ORDERED: Niacin 500 MG Tab PO SCH (09:00)
[2016-12-09] MEDS ORDERED: BUDESONIDE INH SCH (09:00)
[2016-12-09] MEDS ORDERED: Metoprolol Succinate 25 MG Tab.ER PO SCH (09:00)
[2016-12-09] MEDS ORDERED: Diltiazem 25 MG/5 ML SDV IVPUSH ONE (09:35)
[2016-12-09] MEDS ORDERED: FLU Vacc QS 2017-18 (36mos UP)/PF 60 MCG/0.5 ML Syringe IM ONE (10:00)
--- NOTE | 2016-12-09 10:30 | CR ---
EXAM DATE: 12/08/16 PATIENT'S AGE: 81 Patient: NICK QUINTANA Facility: [place], [place] Site . Site : 1935 Study: XRay Chest [id number] 7:58:10 PM Ordering Physician: Maty Rubio Final Report: CHEST 1 VIEW AP INDICATION: Dizziness. COMPARISON: May 2016. IMPRESSION: Stable heart size and vascular pattern. Lungs are now clear of new focal opacities. Resolution of previous interstitial edema pattern and basilar opacities. No pneumothorax or pleural abnormality. Dictated by Guilherme Aguirre MD @ Dec 08 2016 8:04PM (Electronic Signature) Report Signed by Proxy. CHUCK
--- NOTE | 2016-12-09 10:31 | CT ---
EXAM DATE: 12/08/16 PATIENT'S AGE: 81 Patient: NICK QUINTANA Facility: [place], [place] Site . Site : 1935 Study: CT Head [id number] 8:00:29 PM Ordering Physician: Maty Ruboi Final Report: INDICATION: Dizziness. CT HEAD WITHOUT CONTRAST TECHNIQUE: Multiple axial CT images were performed through the head without intravenous contrast administration. COMPARISON: No previous studies are currently available for comparison. FINDINGS: No acute intracranial hemorrhage is identified. No extra-axial collections are evident and there is no mass effect or midline shift. There is mild diffuse age-related brain atrophy. Ventricular size and configuration are within normal limits for the patient`s age. Nayak-white differentiation is within normal limits. There is patchy hypodensity in the periventricular white matter, a nonspecific finding which most likely reflects chronic small vessel ischemic change. Osseous structures are within normal limits and no fractures are seen. Included portions of the paranasal sinuses and mastoid air cells are normally aerated aside from trace mucosal thickening in the right sphenoid sinus. IMPRESSION: 1. No acute intracranial abnormality identified. 2. Age-related brain atrophy and white matter hypodensity consistent with chronic small vessel ischemic change. ANANDA DAVE MD [employer] Dictated by: Bogdan Dave MD @ 12/08/2016 20:50:29 (Electronic Signature) Report Signed by Proxy. [facility]
[2016-12-09 11:50] VITALS: BP 132/86
== END 2016-12-09 13:38 | disposition home or self-care (01) ==
LOC: MW.ED 19:05 → MW.MS 20:22
PROVIDERS: ADMIT Internal Medicine; ATTEND Internal Medicine
DX: R42 Dizziness and giddiness (principal); R11.2 Nausea with vomiting, unspecified; R53.1 Weakness; I48.91 Unspecified atrial fibrillation; J45.909 Unspecified asthma, uncomplicated; M19.90 Unspecified osteoarthritis, unspecified site; K21.9 Gastro-esophageal reflux disease without esophagitis; H54.7 Unspecified visual loss; Z88.1 Allergy status to other antibiotic agents; Z88.8 Allergy status to other drugs, medicaments and biological substances; Z79.01 Long term (current) use of anticoagulants; Z79.51 Long term (current) use of inhaled steroids; Z79.899 Other long term (current) drug therapy; Z90.49 Acquired absence of other specified parts of digestive tract; Z90.710 Acquired absence of both cervix and uterus; Z98.890 Other specified postprocedural states; Z23 Encounter for immunization
CPT/HCPCS: 36415; 70450; 71010; 80053; 82553; 83690; 84484; 85025; 85610; 93005; 96361; 96374; 99285; A9270; C9113; G0008; G0378; J7040; 90686; 96360; 99284

== ENCOUNTER 2017-03-27 12:12 | Day surgery (SDC) | payer MEDICARE, BC ==
[~2017-03-27 12:12] MED LIST: Lactated Ringers 1,000 ML IV SCH; Lidocaine 2% 5 ML SDV ONE; Propofol 200 MG/20 ML SDV ONE
--- NOTE | 2017-03-27 12:57 | PCM.PREANE ---
Preanesthetic Assessment - Anesthesia/Transfusion/Family Hx Anesthesia History: Prior Anesthesia Without Reaction Other Type of Anesthesia Reaction Comment: "I am hard to wake" Family History of Anesthesia Reaction: No Transfusion History: No Prior Transfusion(s) Intubation History: Unknown - Review of Systems General: No Symptoms Pulmonary: No Symptoms Cardiovascular: No Symptoms Gastrointestinal: Abdominal Pain, Other (weight loss) Neurological: No Symptoms Other: Reports: None - Physical Assessment O2 Sat by Pulse Oximetry: 97 Respiratory Rate: 16 Vital Signs: Last Vital Signs Temp 36.2 C 03/27/17 12:25 Pulse 86 03/27/17 12:25 Resp 16 03/27/17 12:25 BP 119/69 03/27/17 12:25 Pulse Ox 97 03/27/17 12:25 Height: 1.66 m Weight: 52.163 kg ASA Class: 3 Mental Status: Alert & Oriented x3 Airway Class: Mallampati = 2 Dentition: Reports: Normal Dentition, Broken Tooth/Teeth (small chips on front upper incisors) Thyro-Mental Finger Breadths: 3 Mouth Opening Finger Breadths: 3 ROM/Head Extension: Limited/Partial Lungs: Clear to Auscultation, Normal Respiratory Effort Cardiovascular: Regular Rhythm, Irregular Rhythm - Allergies Allergies/Adverse Reactions: Allergies Allergy/AdvReac Type Severity Reaction Status Date / Time ciprofloxacin Allergy told if Verified 03/22/17 13:14 over 60 y/o do not take clarithromycin Allergy Cannot Verified 03/22/17 13:14 Remember levofloxacin [From Levaquin] Allergy Cannot Verified 03/22/17 13:14 Remember lisinopril Allergy Cough Verified 03/22/17 13:14 losartan Allergy Cannot Verified 03/22/17 13:14 Remember metoprolol Allergy Shortness Verified 03/22/17 13:14 of Breath - Blood Blood Available: No - Anesthesia Plan Pre-Op Medication Ordered: None - Acknowledgements Anesthesia Type Planned: MAC Pt an Appropriate Candidate for the Planned Anesthesia: Yes Alternatives and Risks of Anesthesia Discussed w Pt/Guardian: Yes Pt/Guardian Understands and Agrees with Anesthesia Plan: Yes PreAnesthesia Questionnaire HEENT History: Reports: Impaired Vision Other HEENT History: wears glasses Cardiovascular History: Reports: Afib, Hypertension Respiratory History: Reports: Asthma (mild), Bronchitis, Recurrent, SOB Gastrointestinal History: Reports: Gastritis, GERD Genitourinary History: Reports: None 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: , Prolapsed Uterus Musculoskeletal History: Reports: Arthritis, Back Pain, Chronic Neurological History: Reports: None, Other (See Below) (h/o migranes) Psychiatric History: Reports: Anxiety, Depression Endocrine/Metabolic History: Reports: None Dermatologic History: Reports: None - Past Surgical History Head Surgeries/Procedures: Reports: None GI Surgical History: Reports: Cholecystectomy, Colonoscopy, EGD, Other (See Below) Other GI Surgeries/Procedures: Acid reflux Female Surgical History: Reports: Hysterectomy, Salpingo-Oophorectomy Musculoskeletal Surgical History: Reports: Arthroscopic Knee (right knee), Arthroscopic Procedure Other Musculoskeletal Surgeries/Procedures:: knee debriedment - SUBSTANCE USE Smoking Status *Q: Never Smoker Tobacco Use Within Last Twelve Months: No Second Hand Smoke Exposure: No Recreational Drug Use History: No - HOME MEDS Home Medications: Home Meds Apixaban [Eliquis] 0.5 tab PO BID 10/17/16 [History] Budesonide/Formoterol Fumarate [Symbicort 160-4.5 Mcg Inhaler] 2 puff INH BID [History] Diltiazem HCl [Diltiazem ER] 360 mg PO DAILY 12/08/16 [History] Albuterol [Ventolin HFA] 1 - 2 puff INH ASDIRECTED 03/22/17 [History] Digoxin [Digox] 125 mcg PO DAILY 03/22/17 [History] Famotidine [Pepcid] 20 mg PO BID 03/22/17 [History] Potassium Chloride 10 meq PO ASDIRECTED 03/22/17 [History] Simethicone [Gas-X] 1 tab CHEW ASDIRECTED 03/22/17 [History] - CURRENT (IN HOUSE) MEDS Current Meds: Current Medications Lactated Ringer's (Ringers, Lactated) 1,000 mls @ 125 mls/hr IV ASDIRECTED [facility] Last Admin: 03/27/17 12:32 Dose: 125 mls/hr Discontinued Medications Lidocaine (Xylocaine-Mpf 2%) Confirm Administered Dose 5 ml .ROUTE .STK-MED ONE Stop: 03/27/17 07:23 Propofol (Diprivan 20 Ml) Confirm Administered Dose 400 mg .ROUTE .STK-MED ONE Stop: 03/27/17 07:23
[2017-03-27] MEDS ORDERED: Propofol 200 MG/20 ML SDV ONE (13:39)
[2017-03-27] MEDS ORDERED: Lactated Ringers 1,000 ML IV SCH (14:00)
--- NOTE | 2017-03-27 14:03 | PCM.OPNOTE ---
- General Post-Op/Procedure Note Date of Surgery/Procedure: 03/27/17 Operative Procedure(s): Esophagogastroduodenoscopy w/ biopsy. Colonoscopy Pre Op Diagnosis: Abnormal weight loss. Early satiety. Change in bowel habits Post-Op Diagnosis: Gastritis. Diverticulosis Anesthesia Technique: MAC (ASA III) Primary Surgeon: Johan Alcala Condition: Good Free Text/Narrative:: DICTATION [id number] CPT CODE [id number]
--- NOTE | 2017-03-27 14:14 | PCM.POSTAN ---
POST ANESTHESIA ASSESSMENT - MENTAL STATUS Mental Status: Alert, Oriented - RESPIRATORY Respiratory Status: Respiratory Rate WNL, Airway Patent, O2 Saturation Stable - CARDIOVASCULAR CV Status: Pulse Rate WNL, Blood Pressure Stable - GASTROINTESTINAL GI Status: No Symptoms - PAIN Pain Score: 0 - POST OP HYDRATION Hydration Status: Adequate & Stable
--- NOTE | 2017-03-27 14:23 | PCM48HPAN ---
Post Anesthesia Note - EVALUATION WITHIN 48HRS OF ANESTHETIC Vital Signs in Normal Range: Yes Patient Participated in Evaluation: Yes Respiratory Function Stable: Yes Airway Patent: Yes Cardiovascular Function Stable: Yes Hydration Status Stable: Yes Pain Control Satisfactory: Yes Nausea and Vomiting Control Satisfactory: Yes Mental Status Recovered: Yes
[2017-03-27 14:26] VITALS: BP 112/64
--- NOTE | 2017-03-28 06:22 | OR ---
SURGEON: Johan Alcala M.D. DATE OF PROCEDURE: 03/27/2017 OPERATION PERFORMED: Colonoscopy. ANESTHESIA: MAC. ASA CLASSIFICATION: Three. PREOPERATIVE DIAGNOSIS: Change in bowel habits with unexplained weight loss. POSTOPERATIVE DIAGNOSIS: Sigmoid diverticulosis. DESCRIPTION OF PROCEDURE: With the patient having completed esophagogastroduodenoscopy, she was now positioned in the left lateral decubitus position. Colonoscope was inserted into the rectum and advanced with minimal difficulty to the cecum where the colonoscope was retroflexed to visualize the ascending colon from below. The colonoscope was then straightened and slowly withdrawn. The cecum, ascending colon, hepatic flexure, transverse colon, splenic flexure, and descending colon showed no tumors, polyps, diverticula, or angiodysplastic changes. Sigmoid colon demonstrates numerous diverticula. No stricture, spasm, or bleeding was noted. No polyps were encountered in the sigmoid colon. The colonoscope was withdrawn to the rectum and retroflexed to visualize the anal orifice from above. Again no tumors or polyps were seen and there were no acute hemorrhoidal changes. The colonoscope was straightened, the rectum aspirated, and the colonoscope removed. The patient tolerated the procedure well and was taken to recovery room in stable condition. LIVE SEPULVEDA /[id number]
--- NOTE | 2017-03-28 06:25 | OR ---
SURGEON: Johan Alcala M.D. DATE OF PROCEDURE: 03/27/2017 PROCEDURE: Esophagogastroduodenoscopy with biopsies. ANESTHESIA: MAC. ASA CLASSIFICATION: Three. PREOPERATIVE DIAGNOSIS: Early satiety with abnormal weight loss. POSTOPERATIVE DIAGNOSIS: Acute gastritis. DESCRIPTION OF PROCEDURE: The patient was taken to the endoscopy room, positioned on the endoscopy table in left lateral decubitus position. Time-out was called for appropriate identification of the patient and procedure. Monitored anesthesia care was provided. The bite block was inserted between the patient's teeth. The gastroscope was inserted through the bite block and advanced without difficulty through the esophagus and stomach into the duodenum where examination was carried out in a retrograde fashion. The duodenum shows no acute inflammatory changes. No bleeding was noted. The gastroscope was withdrawn into the stomach which does show a rather moderate acute gastritis. Antral biopsies were obtained to look for the presence of Helicobacter pylori. The gastroscope was then retroflexed to visualize the proximal stomach and cardia. I did not see any lesions there. No polyps were encountered. No ulcers were noted proximally. The gastroscope was then straightened and slowly withdrawn. The patient does have a small hiatal hernia. GE junction was well visualized and shows no acute inflammatory changes or ulcerations. Mid and proximal esophagus demonstrated good contractility. I was not able to visualize the vocal cords as the scope was withdrawn. The patient tolerated the procedure well. Following colonoscopy, she was taken to recovery room in stable condition. LIVE SEPULVEDA /[id number]
== END 2017-03-27 14:58 | disposition home or self-care (01) ==
LOC: MW.SDS 12:12
PROVIDERS: ATTEND Surgery
DX: K29.50 Unspecified chronic gastritis without bleeding (principal); K57.30 Diverticulosis of large intestine without perforation or abscess without bleeding; K44.9 Diaphragmatic hernia without obstruction or gangrene; F41.9 Anxiety disorder, unspecified; F32.9 Major depressive disorder, single episode, unspecified; J45.909 Unspecified asthma, uncomplicated; I10 Essential (primary) hypertension; Z88.1 Allergy status to other antibiotic agents; Z88.8 Allergy status to other drugs, medicaments and biological substances; Z79.899 Other long term (current) drug therapy
CPT/HCPCS: 43239; 45378; 88305; 88312; J7120; 00813; J2704

== ENCOUNTER 2019-04-12 14:44 | Inpatient (IN) | payer MEDICARE, BC ==
[2019-04-12] MEDS ORDERED: Diltiazem 25 MG/5 ML SDV IVPUSH ONE ×3 (15:00→16:59)
--- NOTE | 2019-04-12 15:47 | EDM.PDOC ---
ED [facility] GENERAL MEDICAL PROBLEM - General Chief Complaint: Chest Pain Stated Complaint: SHORTNESS OF BREATH,CHEST PAIN Time Seen by Provider: 04/12/19 15:45 Source of Information: Reports: Patient History Limitations: Reports: No Limitations - History of Present Illness INITIAL COMMENTS - FREE TEXT/NARRATIVE: Patient is an 83-year-old female with a past medical history of COPD, CHF, atrial fibrillation, CAD presenting with a chief complaint of progressively worsening dyspnea. Patient has had dyspnea for the past 3 to 4 days. Patient states symptoms have gotten worse to the point where she finally came into the emergency department. Patient denies any associated chest pain but does feel little dizzy. Patient reports compliant with her medications. Of note, the patient did have a fall several days ago striking her right head. Patient has some bruising to the right head but does not remember any loss of consciousness. Patient is accompanied by son Mika, who is with her in the emergency room. Pmhx: Per HPI Family Hx: noncontributory Smoking history? no Etoh use? none Drug use? none In addition to that documented in the HPI above, the additional ROS was obtained : Constitutional: Denies fevers or chills Eyes: Denies vision changes ENMT: Denies sore throat CV: Denies chest pain Resp: Positive shortness of breath GI: Denies vomiting or diarrhea : Denies painful urination MSK: Per HPI Skin: Denies new rashes Neuro: Denies new numbness or tingling or weakness Endocrine: Denies unexpected weight loss Heme: Denies bleeding disorders I have reviewed the triage vital signs Const: Well nourished, well developed, appears stated age Eyes: PERRL, no conjunctival injection HENT: NCAT, Neck supple without meningismus CV: RRR, Warm, well-perfused extremities RESP: CTAB, Unlabored respiratory effort GI: soft, non-tender, non-distended, no masses MSK: No gross deformities appreciated Skin: Warm, dry. No rashes Neuro: Alert, machine clothing replacer II-XII grossly intact. Sensation and motor function of extremities grossly intact. Psych: Appropriate mood and affect. Assessment and plan: Patient is an 83-year-old female with past medical history of CHF and COPD presenting with a chief complaint of increasing cough, weakness and shortness of breath. Patient's chest x-ray demonstrates a right-sided infiltrate with increasing pulmonary vascular congestion. Patient started on antibiotics in the emergency department. Patient's heart rate likely elevated due to low digoxin level. Patient given 20 mg of Cardizem with mild improvement. Given patient's condition and stable to supplemental oxygen requirements [facility]. Patient has no significant respiratory distress that would require ICU level of care. - Related Data Allergies Allergy/AdvReac Type Severity Reaction Status Date / Time ciprofloxacin Allergy told if Verified 04/12/19 15:05 over 60 y/o do not take clarithromycin Allergy Cannot Verified 04/12/19 15:05 Remember levofloxacin [From Levaquin] Allergy Cannot Verified 04/12/19 15:05 Remember lisinopril Allergy Cough Verified 04/12/19 15:05 losartan Allergy Cannot Verified 04/12/19 15:05 Remember metoprolol Allergy Shortness Verified 04/12/19 15:05 of Breath Home Meds: Home Meds Apixaban [Eliquis] 0.5 tab PO BID 10/17/16 [History] Budesonide/Formoterol Fumarate [Symbicort 160-4.5 Mcg Inhaler] 2 puff INH BID [History] dilTIAZem HCL [Diltiazem ER] 360 mg PO DAILY 12/08/16 [History] Albuterol [Ventolin HFA] 1 - 2 puff INH ASDIRECTED 03/22/17 [History] Digoxin [Digox] 125 mcg PO DAILY 03/22/17 [History] Famotidine [Pepcid] 20 mg PO BID 03/22/17 [History] Potassium Chloride 10 meq PO ASDIRECTED 03/22/17 [History] Simethicone [Gas-X] 1 tab CHEW ASDIRECTED 03/22/17 [History] Past Medical History HEENT History: Reports: Impaired Vision Other HEENT History: wears glasses Cardiovascular History: Reports: Afib, Hypertension Respiratory History: Reports: Asthma, Bronchitis, Recurrent, COPD, SOB Gastrointestinal History: Reports: Gastritis, GERD Genitourinary History: Reports: None 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: , Prolapsed Uterus Musculoskeletal History: Reports: Arthritis, Back Pain, Chronic Neurological History: Reports: None, Other (See Below) Psychiatric History: Reports: Anxiety, Depression Endocrine/Metabolic History: Reports: None Hematologic History: Reports: None Immunologic History: Reports: None Oncologic (Cancer) History: Reports: None Dermatologic History: Reports: None - Infectious Disease History Infectious Disease History: Reports: None - Past Surgical History Head Surgeries/Procedures: Reports: None HEENT Surgical History: Reports: None Cardiovascular Surgical History: Reports: None Respiratory Surgical History: Reports: None GI Surgical History: Reports: Cholecystectomy, Colonoscopy, EGD, Other (See Below) Other GI Surgeries/Procedures: Acid reflux Female Surgical History: Reports: Hysterectomy, Salpingo-Oophorectomy Endocrine Surgical History: Reports: None Neurological Surgical History: Reports: None Musculoskeletal Surgical History: Reports: Arthroscopic Knee, Arthroscopic Procedure Other Musculoskeletal Surgeries/Procedures:: knee debriedment Oncologic Surgical History: Reports: None Dermatological Surgical History: Reports: None Social & Family History - Family History Family Medical History: Noncontributory - Tobacco Use Smoking Status *Q: Never Smoker Second Hand Smoke Exposure: No - Caffeine Use Caffeine Use: Reports: Coffee Other Caffeine Use: daily coffee Caffeine Use Comment: daily - Recreational Drug Use Recreational Drug Use: No ED ROS GENERAL - Review of Systems Review Of Systems: See Below ED EXAM, GENERAL - Physical Exam Exam: See Below Course - Vital Signs Last Recorded V/S: Last Vital Signs Temp 37.9 C 04/12/19 14:48 Pulse 127 H 04/12/19 15:54 Resp 22 H 04/12/19 15:54 BP 137/79 04/12/19 15:54 Pulse Ox 93 L 04/12/19 15:54 - Orders/Labs/Meds Orders: Active Orders 24 hr Category Date Time Status Admission Status [Patient Status] [ADT] Stat ADT 04/12/19 16:32 Active EKG Documentation Completion [RC] STAT Care 04/12/19 15:03 Active Levofloxacin/Dextrose 5%-Water [Levaquin in D5W 500 MG/ Med 04/12/19 16:23 Active 100 ML] 500 mg Premix Bag 1 bag IV ONETIME Medication Orders Levofloxacin/Dextrose 500 mg/ (Premix) 100 mls @ 100 mls/hr IV ONETIME ONE Stop: 04/12/19 17:22 Labs: Laboratory Tests 04/12/19 04/12/19 04/12/19 Range/Units 15:15 15:15 15:15 WBC 17.68 H (4.0-11.0) K/uL RBC 4.06 L (4.30-5.90) M/uL Hgb 12.4 (12.0-16.0) g/dL Hct 36.6 (36.0-46.0) % MCV 90.1 (80.0-98.0) fL MCH 30.5 (27.0-32.0) pg MCHC 33.9 (31.0-37.0) g/dL RDW Std Deviation 46.2 (28.0-62.0) fl RDW Coeff of Kristen 14 (11.0-15.0) % Plt Count 236 (150-400) K/uL MPV 10.20 (7.40-12.00) fL Neut % (Auto) 74.6 (48.0-80.0) % Lymph % (Auto) 11.7 L (16.0-40.0) % [place] % (Auto) 13.5 (0.0-15.0) % Eos % (Auto) 0.1 (0.0-7.0) % Baso % (Auto) 0.1 (0.0-1.5) % Neut # (Auto) 13.2 H (1.4-5.7) K/uL Lymph # (Auto) 2.1 (0.6-2.4) K/uL [place] # (Auto) 2.4 H (0.0-0.8) K/uL Eos # (Auto) 0.0 (0.0-0.7) K/uL Baso # (Auto) 0.0 (0.0-0.1) K/uL Nucleated RBC % 0.0 /100WBC Nucleated RBCs # 0 K/uL Sodium 133 L (136-145) mmol/L Potassium 4.2 (3.5-5.1) mmol/L Chloride 96 L (98-107) mmol/L Carbon Dioxide 26.8 (21.0-32.0) mmol/L BUN 16 (7.0-18.0) mg/dL Creatinine 0.8 (0.6-1.0) mg/dL Est Cr Clr Drug Dosing 49.60 mL/min Estimated GFR (MDRD) > 60.0 ml/min Glucose 110 H (74-106) mg/dL Calcium 10.1 (8.5-10.1) mg/dL Total Bilirubin 1.2 H (0.2-1.0) mg/dL AST 65 H (15-37) IU/L ALT 47 (14-63) IU/L Alkaline Phosphatase 112 (46-116) U/L Troponin I < 0.050 (0.000-0.056) ng/mL B-Natriuretic Peptide 358 H (<100) PG/ML Total Protein 7.2 (6.4-8.2) g/dL Albumin 2.5 L (3.4-5.0) g/dL Globulin 4.7 H (2.6-4.0) g/dL Albumin/Globulin Ratio 0.5 L (0.9-1.6) Digoxin 0.6 L (0.9-2.0) ng/mL Meds: Medications Generic Name Dose Route Start Last Admin Trade Name Freq PRN Reason Stop Dose Admin Levofloxacin/Dextrose 500 mg/ 100 mls @ 100 mls/hr 04/12/19 16:23 Premix IV 04/12/19 17:22 ONETIME ONE Discontinued Medications Generic Name Dose Route Start Last Admin Trade Name Freq PRN Reason Stop Dose Admin Diltiazem HCl 10 mg 04/12/19 15:00 04/12/19 15:05 Diltiazem IVPUSH 04/12/19 15:01 10 mg ONETIME ONE Administration Diltiazem HCl 10 mg 04/12/19 15:21 04/12/19 15:30 Diltiazem IVPUSH 04/12/19 15:22 10 mg ONETIME ONE Administration Departure - Departure Time of Disposition: 16:51 Disposition: Admitted As Inpatient 66 Clinical Impression: Pneumonia Referrals: Reinier Rodriguez MD [Primary Care Provider] - Forms: ED Department Discharge Sepsis Event Note - Evaluation Sepsis Screening Result: No Definite Risk - Focused Exam Vital Signs: Vital Signs Temp Pulse Resp BP Pulse Ox 04/12/19 15:54 127 H 22 H 137/79 93 L 04/12/19 15:41 127 H 18 119/59 L 92 L 04/12/19 14:48 37.9 C 132 H 18 151/81 H 89 L Date Exam was Performed: 04/12/19 Time Exam was Performed: 16:49 - My Orders Last 24 Hours: My Active Orders 04/12/19 15:03 EKG Documentation Completion [RC] STAT 04/12/19 16:23 Levofloxacin/Dextrose 5%-Water [Levaquin in D5W 500 MG/100 ML] 500 mg Premix Bag 1 bag IV ONETIME 04/12/19 16:32 Admission Status [Patient Status] [ADT] Stat - Assessment/Plan Last 24 Hours: My Active Orders 04/12/19 15:03 EKG Documentation Completion [RC] STAT 04/12/19 16:23 Levofloxacin/Dextrose 5%-Water [Levaquin in D5W 500 MG/100 ML] 500 mg Premix Bag 1 bag IV ONETIME 04/12/19 16:32 Admission Status [Patient Status] [ADT] Stat
[2019-04-12 15:58] LABS: BLOOD UREA NITROGEN,BUN 16 mg/dL (7.0-18.0); CARBON DIOXIDE,CO2 26.8 mmol/L (21.0-32.0); CHLORIDE,CL 96 mmol/L (98-107); GLUCOSE RANDOM 110 mg/dL (74-106); POTASSIUM,K 4.2 mmol/L (3.5-5.1); SODIUM,NA 133 mmol/L (136-145)
--- NOTE | 2019-04-12 16:17 | CR ---
Chest: AP view of the chest was obtained. Comparison: Prior chest x-ray of 12/08/69. Patchy areas of increased density are noted within the right upper and right lower lung as well as within the left midlung. Heart is enlarged. Small pleural effusions are seen bilaterally within the costophrenic angles. Bony structures are grossly intact. Impression: 1. Increased density within both sides the chest, worse on the right side. Findings most likely representing areas of pneumonia. 2. Small bilateral pleural effusions possibly representing mild superimposed CHF. Diagnostic code #3 Study was dictated in [place] Standard Time
--- NOTE | 2019-04-12 16:21 | CT ---
Head CT Technique: Multiple axial sections through the brain were obtained. Intravenous contrast was not utilized. Comparison: Prior head CT study of 12/08/16. Findings: Ventricles along with basal cisterns and sulci over the convexities are mildly prominent. Diminished density is noted within the periventricular and subcortical white matter compatible with small vessel ischemic demyelination change. No evidence of intracranial hemorrhage. No midline shift or mass effect is seen. Bone window settings were reviewed which shows mild soft tissue swelling within the right frontal scalp. Mild mucosal thickening is seen within the ethmoid and sphenoid sinus. Mastoid sinuses are clear. No acute calvarial abnormality is seen. Impression: 1. Slight soft tissue swelling is seen within the right frontal scalp. 2. Sinus findings which are most likely incidental. 3. Senescent change as noted above. 3. No acute intracranial abnormality is appreciated. Diagnostic code #2 Study was dictated in [place] Standard Time
[2019-04-12] MEDS ORDERED: Levofloxacin/Dextrose 5%-Water 500 MG in Premix Bag 1 BAG IV ONE (16:23)
[2019-04-12] MEDS ORDERED: Docusate Sodium 100 MG Cap PO PRN (16:54)
[2019-04-12] MEDS ORDERED: Ondansetron 4 MG/2 ML SDV IVPUSH PRN (16:54)
[2019-04-12] MEDS ORDERED: Polyethylene Glycol 3350 Powder 17 GM Packet PO PRN (16:54)
[2019-04-12] MEDS ORDERED: Ondansetron 4 MG Tab.DIS PO PRN (16:54)
[2019-04-12] MEDS ORDERED: Levalbuterol HCl 1.25 MG/3 ML Neb NEB PRN (17:01)
[2019-04-12] MEDS ORDERED: Levalbuterol HCl 1.25 MG/3 ML Neb NEB ONE (17:03)
[2019-04-12] MEDS ORDERED: Acetaminophen 500 MG Tab PO PRN (17:05)
[2019-04-12] MEDS ORDERED: Furosemide 40 MG/4 ML VIAL IVPUSH ONE (17:14)
--- NOTE | 2019-04-12 17:22 | PCM.HP.2 ---
H&P History of Present Illness - General Date of Service: 04/12/19 Admit Problem/Dx: Admission Diagnosis/Problem Admission Diagnosis/Problem Pneumonia - History of Present Illness Initial Comments - Free Text/Narative: 83 y/o female with history of Afib on Eliquis, CHF, COPD who presented today to the ER after her son insisted that she come in. She has been feeling more weak that past couple of days. Increasing shortness of breath. States that she sometimes misses some medication pills. No chest pain, abdominal pain, dysuria, diarrhea. Worsening lower extremity swelling. In addition, she recently fell about 1 week ago when she was bending over to fruit or nut picker something from the floor and fell forward hitting her head. No loss of consciousness. Swelling has improved significantly. No nausea, vomiting. Moving her neck without difficulty. In the ER, Trop negative. Diltiazem given. chext xray shows right sided pneumonia. Started on levaquin. On NC. - Related Data Allergies/Adverse Reactions: Allergies Allergy/AdvReac Type Severity Reaction Status Date / Time ciprofloxacin Allergy told if Verified 04/12/19 17:23 over 60 y/o do not take clarithromycin Allergy Cannot Verified 04/12/19 17:23 Remember levofloxacin [From Levaquin] Allergy Cannot Verified 04/12/19 17:23 Remember lisinopril Allergy Cough Verified 04/12/19 17:23 losartan Allergy Cannot Verified 04/12/19 17:23 Remember metoprolol Allergy Shortness Verified 04/12/19 17:23 of Breath Home Medications: Home Meds Apixaban [Eliquis] 0.5 tab PO BID 10/17/16 [History] Budesonide/Formoterol Fumarate [Symbicort 160-4.5 Mcg Inhaler] 2 puff INH BID [History] dilTIAZem HCL [Diltiazem ER] 360 mg PO DAILY 12/08/16 [History] Albuterol [Ventolin HFA] 1 - 2 puff INH ASDIRECTED 03/22/17 [History] Digoxin [Digox] 125 mcg PO DAILY 03/22/17 [History] Famotidine [Pepcid] 20 mg PO BID 03/22/17 [History] Potassium Chloride 10 meq PO ASDIRECTED 03/22/17 [History] Simethicone [Gas-X] 1 tab CHEW ASDIRECTED 03/22/17 [History] Carboxymethylcellulose Sodium [Thera Tears] 1 - 2 drop EYEBOTH BID PRN 04/12/19 [History] Furosemide 20 mg PO DAILY 04/12/19 [History] L.acidoph,Paracasei, B.lactis [Probiotic] 2 each PO BID 04/12/19 [History] Multivitamin with Minerals [Hair, Skin & Nails] 2 each PO DAILY 04/12/19 [ History] Past Medical History HEENT History: Reports: Impaired Vision Other HEENT History: wears glasses Cardiovascular History: Reports: Afib, Hypertension Respiratory History: Reports: Asthma, Bronchitis, Recurrent, COPD, SOB Gastrointestinal History: Reports: Gastritis, GERD Genitourinary History: Reports: None 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: , Prolapsed Uterus Musculoskeletal History: Reports: Arthritis, Back Pain, Chronic Neurological History: Reports: None, Other (See Below) Psychiatric History: Reports: Anxiety, Depression Endocrine/Metabolic History: Reports: None Hematologic History: Reports: None Immunologic History: Reports: None Oncologic (Cancer) History: Reports: None Dermatologic History: Reports: None - Infectious Disease History Infectious Disease History: Reports: None - Past Surgical History Head Surgeries/Procedures: Reports: None HEENT Surgical History: Reports: None Cardiovascular Surgical History: Reports: None Respiratory Surgical History: Reports: None GI Surgical History: Reports: Cholecystectomy, Colonoscopy, EGD, Other (See Below) Other GI Surgeries/Procedures: Acid reflux Female Surgical History: Reports: Hysterectomy, Salpingo-Oophorectomy Endocrine Surgical History: Reports: None Neurological Surgical History: Reports: None Musculoskeletal Surgical History: Reports: Arthroscopic Knee, Arthroscopic Procedure Other Musculoskeletal Surgeries/Procedures:: knee debriedment Oncologic Surgical History: Reports: None Dermatological Surgical History: Reports: None Social & Family History - Family History Family Medical History: Noncontributory - Tobacco Use Smoking Status *Q: Never Smoker Second Hand Smoke Exposure: No - Caffeine Use Caffeine Use: Reports: Coffee Other Caffeine Use: daily coffee Caffeine Use Comment: daily - Recreational Drug Use Recreational Drug Use: No H&P Review of Systems - Review of Systems: Review Of Systems: Comprehensive ROS is negative, except as noted in HPI. Exam - Exam Exam: See Below - Vital Signs Vital Signs: Last Vital Signs Temp 37.9 C 04/12/19 14:48 Pulse 126 H 04/12/19 17:03 Resp 20 04/12/19 17:03 BP 136/73 04/12/19 17:03 Pulse Ox 94 L 04/12/19 17:03 Weight: 58.967 kg - Exam General: Alert, Oriented, Cooperative HEENT: Pupils Equal, Pupils Reactive Neck: Supple, Full Range of Motion Lungs: Rhonchi, Wheezing - Patient Data Lab Results Last 24 hrs: Laboratory Results - last 24 hr 04/12/19 04/12/19 04/12/19 Range/Units 15:15 15:15 15:15 WBC 17.68 H (4.0-11.0) K/uL RBC 4.06 L (4.30-5.90) M/uL Hgb 12.4 (12.0-16.0) g/dL Hct 36.6 (36.0-46.0) % MCV 90.1 (80.0-98.0) fL MCH 30.5 (27.0-32.0) pg MCHC 33.9 (31.0-37.0) g/dL RDW Std Deviation 46.2 (28.0-62.0) fl RDW Coeff of Kristen 14 (11.0-15.0) % Plt Count 236 (150-400) K/uL MPV 10.20 (7.40-12.00) fL Neut % (Auto) 74.6 (48.0-80.0) % Lymph % (Auto) 11.7 L (16.0-40.0) % [place] % (Auto) 13.5 (0.0-15.0) % Eos % (Auto) 0.1 (0.0-7.0) % Baso % (Auto) 0.1 (0.0-1.5) % Neut # (Auto) 13.2 H (1.4-5.7) K/uL Lymph # (Auto) 2.1 (0.6-2.4) K/uL [place] # (Auto) 2.4 H (0.0-0.8) K/uL Eos # (Auto) 0.0 (0.0-0.7) K/uL Baso # (Auto) 0.0 (0.0-0.1) K/uL Nucleated RBC % 0.0 /100WBC Nucleated RBCs # 0 K/uL Sodium 133 L (136-145) mmol/L Potassium 4.2 (3.5-5.1) mmol/L Chloride 96 L (98-107) mmol/L Carbon Dioxide 26.8 (21.0-32.0) mmol/L BUN 16 (7.0-18.0) mg/dL Creatinine 0.8 (0.6-1.0) mg/dL Est Cr Clr Drug Dosing 49.60 mL/min Estimated GFR (MDRD) > 60.0 ml/min Glucose 110 H (74-106) mg/dL Calcium 10.1 (8.5-10.1) mg/dL Total Bilirubin 1.2 H (0.2-1.0) mg/dL AST 65 H (15-37) IU/L ALT 47 (14-63) IU/L Alkaline Phosphatase 112 (46-116) U/L Troponin I < 0.050 (0.000-0.056) ng/mL B-Natriuretic Peptide 358 H (<100) PG/ML Total Protein 7.2 (6.4-8.2) g/dL Albumin 2.5 L (3.4-5.0) g/dL Globulin 4.7 H (2.6-4.0) g/dL Albumin/Globulin Ratio 0.5 L (0.9-1.6) Digoxin 0.6 L (0.9-2.0) ng/mL Result Diagrams: 04/12/19 15:15 04/12/19 15:15 Sepsis Event Note - Evaluation Sepsis Screening Result: No Definite Risk - Focused Exam Vital Signs: Vital Signs Temp Pulse Resp BP Pulse Ox 04/12/19 17:03 126 H 20 136/73 94 L 04/12/19 15:54 127 H 22 H 137/79 93 L 04/12/19 15:41 127 H 18 119/59 L 92 L 04/12/19 14:48 37.9 C 132 H 18 151/81 H 89 L Date Exam was Performed: 04/12/19 Time Exam was Performed: 17:33 Problem List Initiated/Reviewed/Updated: Yes Orders Last 24hrs: Active Orders 24 hr Category Date Time Status Admission Status [Patient Status] [ADT] Stat ADT 04/12/19 16:32 Active EKG Documentation Completion [RC] STAT Care 04/12/19 15:03 Active Height and Weight [RC] DAILY Care 04/12/19 16:54 Active Intake and Output Strict [RC] ASDIRECTED Care 04/12/19 17:13 Active Intake and Output [RC] QSHIFT Care 04/12/19 16:54 Active Oxygen Therapy [RC] PRN Care 04/12/19 16:54 Active RT Aerosol Therapy [RC] ASDIRECTED Care 04/12/19 17:03 Active RT Aerosol Therapy [RC] ASDIRECTED Care 04/12/19 17:03 Active Telemetry Monitoring [Cardiac Monitoring] [RC] . Care 04/12/19 17:00 Active DIRECTED Up With Assistance [RC] ASDIRECTED Care 04/12/19 16:54 Active VTE/DVT Education [RC] PER UNIT ROUTINE Care 04/12/19 16:54 Active Vital Signs [RC] Q4H Care 04/12/19 16:54 Active Fluid Restriction [DIET] Diet 04/13/19 Breakfast Active Heart Healthy Diet [DIET] Diet 04/12/19 Dinner Active CBC WITH AUTO DIFF [HEME] AM Lab 04/13/19 05:11 Ordered CBC WITH AUTO DIFF [HEME] AM Lab 04/14/19 05:11 Ordered CBC WITH AUTO DIFF [HEME] AM Lab 04/15/19 05:11 Ordered COMPREHENSIVE METABOLIC PN,CMP [CHEM] AM Lab 04/13/19 05:11 Ordered COMPREHENSIVE METABOLIC PN,CMP [CHEM] AM Lab 04/14/19 05:11 Ordered COMPREHENSIVE METABOLIC PN,CMP [CHEM] AM Lab 04/15/19 05:11 Ordered LIPID PANEL [CHEM] AM Lab 04/13/19 05:11 Ordered MAGNESIUM [CHEM] Stat Lab 04/12/19 15:15 Received TSH [CHEM] Routine Lab 04/12/19 15:15 Received Acetaminophen [Tylenol Extra Strength] Med 04/12/19 17:05 Active 500 mg PO Q6H PRN Apixaban [Eliquis] Med 04/12/19 21:00 Active 2.5 mg PO BID Digoxin [Lanoxin] Med 04/13/19 09:00 Active 125 mcg PO DAILY Docusate Sodium [Colace] Med 04/12/19 16:54 Active 100 mg PO BID PRN Famotidine [Pepcid] Med 04/12/19 21:00 Active 20 mg PO BID Furosemide [Lasix] Med 04/12/19 17:14 Once 20 mg IVPUSH NOW ONE Levofloxacin/Dextrose 5%-Water [Levaquin in D5W 500 MG/ Med 04/12/19 16:23 Active 100 ML] 500 mg Premix Bag 1 bag IV ONETIME Levofloxacin/Dextrose 5%-Water [Levaquin in D5W 750 MG/ Med 04/13/19 09:00 Active 150 ML] 750 mg Premix Bag 1 bag IV DAILY Ondansetron [Zofran ODT] Med 04/12/19 16:54 Active 4 mg PO Q4H PRN Ondansetron [Zofran] Med 04/12/19 16:54 Active 4 mg IVPUSH Q4H PRN Patient's Own Medication [Ptom] Med 04/12/19 21:00 Active 0 each INH BID dilTIAZem HCL Med 04/13/19 09:00 Active 360 mg PO DAILY levalbuterol HCL [Xopenex] Med 04/12/19 17:01 Active 1.25 mg NEB Q6HRRT PRN polyethylene glycoL 3350 [MiraLAX] Med 04/12/19 16:54 Active 17 gm PO DAILY PRN Resuscitation Status Routine Resus Stat 04/12/19 16:54 Ordered Medication Orders Acetaminophen (Tylenol Extra Strength) 500 mg PO Q6H PRN PRN Reason: Pain Apixaban (Eliquis) 2.5 mg PO BID ALFIE Digoxin (Lanoxin) 125 mcg PO DAILY ALFIE Docusate Sodium (Colace) 100 mg PO BID PRN PRN Reason: Constipation Famotidine (Pepcid) 20 mg PO BID ALFIE Furosemide (Lasix) 20 mg IVPUSH NOW ONE Stop: 04/12/19 17:15 Levofloxacin/Dextrose 500 mg/ (Premix) 100 mls @ 100 mls/hr IV ONETIME ONE Stop: 04/12/19 17:22 Levofloxacin/Dextrose 750 mg/ (Premix) 150 mls @ 100 mls/hr IV DAILY ALFIE Levalbuterol HCl (Xopenex) 1.25 mg NEB Q6HRRT PRN PRN Reason: Wheezing Non-Formulary Medication (Diltiazem Hcl) 360 mg PO DAILY ALFIE Ondansetron HCl (Zofran Odt) 4 mg PO Q4H PRN PRN Reason: nausea, able to take PO Ondansetron HCl (Zofran) 4 mg IVPUSH Q4H PRN PRN Reason: Nausea Budesonide/Formoterol 160-4.5 Mcg/Puff 6 Gm Inhaler 0 each INH BID ALFIE Polyethylene Glycol (Miralax) 17 gm PO DAILY PRN PRN Reason: Constipation Assessment/Plan Comment:: A: 1. Community acquired pneumonia 2. Acute CHF exacerbation 3. Afib w RVR, on Eliquis 4. Hypomagnesemia 5. PMH COPD P: 1. CAP- will start Ceftriaxone and doxycycline since patient states she is allergic to Levaquin. DC Levaquin. Titrate O2 with goal O2 sat >88%. Levalbuterol Neb PRN. 2. Acute CHF exacerbation- will give lasix 20 mg IV once and see how she responds. Will restart home medications. strict I/O, fluid restriction, daily weights. 3. Afib wRVR- will give Diltiazem 20 mg IV once. Telemetry. Restarted Digoxin home dose. 4. Hypomagnesemia- replace with MgS 2 g IV once. Recheck tomorrow. dispo: 2-3 days
[2019-04-12] MEDS ORDERED: cefTRIAXone 1 GM in Sodium Chloride 0.9% 50 ML IV SCH (17:30)
[2019-04-12] MEDS ORDERED: Magnesium Sulfate/Water 2 GM in Premix Bag 1 BAG IV ONE ×2 (17:32→21:30)
[2019-04-12] MEDS: Doxycycline 100 MG in Sodium Chloride 0.9% 100 ML IV SCH (19:31)
[2019-04-12] MEDS ORDERED: Digoxin 500 MCG/2 ML Amp IVPUSH ONE (19:41)
[2019-04-12] MEDS ORDERED: Famotidine 20 MG Tab PO SCH (21:00)
[2019-04-12] MEDS: Apixaban 5 MG Tab PO SCH (21:28)
[2019-04-12] MEDS: BUDESONIDE INH SCH (21:31)
[2019-04-12] MEDS: FORMOTEROL INH SCH (21:31)
[2019-04-12] MEDS ORDERED: Oseltamivir 75 MG Cap PO SCH (22:45)
[2019-04-12] MEDS: Diltiazem 180 MG Cap.CD PO SCH (23:36)
[2019-04-13] MEDS: Oseltamivir Phosphate 30 MG Capsule PO SCH ×3 (01:01→21:01)
[2019-04-13] MEDS: Doxycycline 100 MG in Sodium Chloride 0.9% 100 ML IV SCH ×2 (05:16→17:16)
[2019-04-13 06:46] LABS: BLOOD UREA NITROGEN,BUN 11 mg/dL (7.0-18.0); CARBON DIOXIDE,CO2 29.1 mmol/L (21.0-32.0); CHLORIDE,CL 100 mmol/L (98-107); GLUCOSE RANDOM 114 mg/dL (74-106); POTASSIUM,K 3.4 mmol/L (3.5-5.1); SODIUM,NA 137 mmol/L (136-145)
[2019-04-13] MEDS ORDERED: Potassium Chloride 20 MEQ Tab.ER PO ONE (07:21)
[2019-04-13] MEDS ORDERED: Furosemide 20 MG/2 ML VIAL IVPUSH ONE (08:00)
[2019-04-13] MEDS: Apixaban 5 MG Tab PO SCH ×2 (08:08→21:01)
[2019-04-13] MEDS: Famotidine 20 MG Tab PO SCH (08:09)
[2019-04-13] MEDS: Digoxin 125 MCG Tab PO SCH (08:09)
[2019-04-13] MEDS: Diltiazem 180 MG Cap.CD PO SCH (08:10)
[2019-04-13] MEDS: BUDESONIDE INH SCH ×2 (08:11→21:04)
[2019-04-13] MEDS: FORMOTEROL INH SCH ×2 (08:11→21:04)
[2019-04-13] MEDS ORDERED: Levofloxacin/Dextrose 5%-Water 750 MG in Premix Bag 1 BAG IV SCH (09:00)
[2019-04-13] MEDS ORDERED: Diltiazem 180 MG Cap.CD PO SCH (09:00)
[2019-04-13] MEDS ORDERED: Benzocaine/Cetylpyridinium/Menthol Lozenge MUCMEM PRN (11:05)
--- NOTE | 2019-04-13 14:23 | PCM.PN ---
- General Info Date of Service: 04/13/19 Subjective Update: No acute events overnight. feeling better this morning. no chest pain. Afib rate controlled. - Patient Data Vitals - Most Recent: Last Vital Signs Temp 37.2 C 04/13/19 11:35 Pulse 90 04/13/19 11:35 Resp 18 04/13/19 11:35 BP 111/58 L 04/13/19 11:35 Pulse Ox 93 L 04/13/19 11:35 Weight - Most Recent: 59.3 kg I&O - Last 24 Hours: Intake & Output 04/12/19 04/13/19 04/13/19 22:59 06:59 14:59 Intake Total 100 750 Output Total 800 Balance 100 -50 Lab Results Last 24 Hours: Laboratory Results - last 24 hr 04/12/19 04/12/19 04/12/19 Range/Units 15:15 15:15 15:15 WBC 17.68 H (4.0-11.0) K/uL RBC 4.06 L (4.30-5.90) M/uL Hgb 12.4 (12.0-16.0) g/dL Hct 36.6 (36.0-46.0) % MCV 90.1 (80.0-98.0) fL MCH 30.5 (27.0-32.0) pg MCHC 33.9 (31.0-37.0) g/dL RDW Std Deviation 46.2 (28.0-62.0) fl RDW Coeff of Kristen 14 (11.0-15.0) % Plt Count 236 (150-400) K/uL MPV 10.20 (7.40-12.00) fL Neut % (Auto) 74.6 (48.0-80.0) % Lymph % (Auto) 11.7 L (16.0-40.0) % [place] % (Auto) 13.5 (0.0-15.0) % Eos % (Auto) 0.1 (0.0-7.0) % Baso % (Auto) 0.1 (0.0-1.5) % Neut # (Auto) 13.2 H (1.4-5.7) K/uL Lymph # (Auto) 2.1 (0.6-2.4) K/uL [place] # (Auto) 2.4 H (0.0-0.8) K/uL Eos # (Auto) 0.0 (0.0-0.7) K/uL Baso # (Auto) 0.0 (0.0-0.1) K/uL Nucleated RBC % 0.0 /100WBC Nucleated RBCs # 0 K/uL Sodium 133 L (136-145) mmol/L Potassium 4.2 (3.5-5.1) mmol/L Chloride 96 L (98-107) mmol/L Carbon Dioxide 26.8 (21.0-32.0) mmol/L BUN 16 (7.0-18.0) mg/dL Creatinine 0.8 (0.6-1.0) mg/dL Est Cr Clr Drug Dosing 49.60 mL/min Estimated GFR (MDRD) > 60.0 ml/min Glucose 110 H (74-106) mg/dL Hemoglobin A1c (4.5-6.2) % Calcium 10.1 (8.5-10.1) mg/dL Magnesium (1.8-2.4) mg/dL Total Bilirubin 1.2 H (0.2-1.0) mg/dL AST 65 H (15-37) IU/L ALT 47 (14-63) IU/L Alkaline Phosphatase 112 (46-116) U/L Troponin I < 0.050 (0.000-0.056) ng/mL B-Natriuretic Peptide 358 H (<100) PG/ML Total Protein 7.2 (6.4-8.2) g/dL Albumin 2.5 L (3.4-5.0) g/dL Globulin 4.7 H (2.6-4.0) g/dL Albumin/Globulin Ratio 0.5 L (0.9-1.6) Triglycerides (0-200) mg/dL Cholesterol (50-200) mg/dL LDL Cholesterol, Calc (60-180) mg/dL VLDL Cholesterol (5-55) mg/dL HDL Cholesterol (40-60) mg/dL Cholesterol/HDL Ratio (3.3-6.0) TSH 3rd Generation (0.36-3.74) uIU/mL Urine Color Urine Appearance Urine pH (5.0-8.0) Ur Specific [place] (1.001-1.035) Urine Protein (NEGATIVE) mg/dL Urine Glucose (UA) (NEGATIVE) mg/dL Urine Ketones (NEGATIVE) mg/dL Urine Occult Blood (NEGATIVE) Urine Nitrite (NEGATIVE) Urine Bilirubin (NEGATIVE) Urine Urobilinogen (<2.0) EU/dL Ur Leukocyte Esterase (NEGATIVE) Urine RBC (0-2/HPF) Urine WBC (0-5/HPF) Ur Epithelial Cells (NONE-FEW) Urine Bacteria (NEGATIVE) Digoxin 0.6 L (0.9-2.0) ng/mL 04/12/19 04/12/19 04/13/19 Range/Units 15:15 18:32 05:55 WBC (4.0-11.0) K/uL RBC (4.30-5.90) M/uL Hgb (12.0-16.0) g/dL Hct (36.0-46.0) % MCV (80.0-98.0) fL MCH (27.0-32.0) pg MCHC (31.0-37.0) g/dL RDW Std Deviation (28.0-62.0) fl RDW Coeff of Kristen (11.0-15.0) % Plt Count (150-400) K/uL MPV (7.40-12.00) fL Neut % (Auto) (48.0-80.0) % Lymph % (Auto) (16.0-40.0) % [place] % (Auto) (0.0-15.0) % Eos % (Auto) (0.0-7.0) % Baso % (Auto) (0.0-1.5) % Neut # (Auto) (1.4-5.7) K/uL Lymph # (Auto) (0.6-2.4) K/uL [place] # (Auto) (0.0-0.8) K/uL Eos # (Auto) (0.0-0.7) K/uL Baso # (Auto) (0.0-0.1) K/uL Nucleated RBC % /100WBC Nucleated RBCs # K/uL Sodium 137 (136-145) mmol/L Potassium 3.4 L (3.5-5.1) mmol/L Chloride 100 (98-107) mmol/L Carbon Dioxide 29.1 (21.0-32.0) mmol/L BUN 11 (7.0-18.0) mg/dL Creatinine 0.7 (0.6-1.0) mg/dL Est Cr Clr Drug Dosing 57.01 mL/min Estimated GFR (MDRD) > 60.0 ml/min Glucose 114 H (74-106) mg/dL Hemoglobin A1c (4.5-6.2) % Calcium 9.1 (8.5-10.1) mg/dL Magnesium 1.7 L 2.2 (1.8-2.4) mg/dL Total Bilirubin 0.8 (0.2-1.0) mg/dL AST 58 H (15-37) IU/L ALT 49 (14-63) IU/L Alkaline Phosphatase 100 (46-116) U/L Troponin I (0.000-0.056) ng/mL B-Natriuretic Peptide (<100) PG/ML Total Protein 6.8 (6.4-8.2) g/dL Albumin 2.2 L (3.4-5.0) g/dL Globulin 4.6 H (2.6-4.0) g/dL Albumin/Globulin Ratio 0.5 L (0.9-1.6) Triglycerides 72 (0-200) mg/dL Cholesterol 102 (50-200) mg/dL LDL Cholesterol, Calc 64 (60-180) mg/dL VLDL Cholesterol 14 (5-55) mg/dL HDL Cholesterol 24 L (40-60) mg/dL Cholesterol/HDL Ratio 4.3 (3.3-6.0) TSH 3rd Generation 1.29 (0.36-3.74) uIU/mL Urine Color YELLOW Urine Appearance CLEAR Urine pH 5.5 (5.0-8.0) Ur Specific [place] 1.010 (1.001-1.035) Urine Protein NEGATIVE (NEGATIVE) mg/dL Urine Glucose (UA) NEGATIVE (NEGATIVE) mg/dL Urine Ketones NEGATIVE (NEGATIVE) mg/dL Urine Occult Blood NEGATIVE (NEGATIVE) Urine Nitrite NEGATIVE (NEGATIVE) Urine Bilirubin NEGATIVE (NEGATIVE) Urine Urobilinogen 0.2 (<2.0) EU/dL Ur Leukocyte Esterase TRACE H (NEGATIVE) Urine RBC 0-1 (0-2/HPF) Urine WBC 0-2 (0-5/HPF) Ur Epithelial Cells RARE (NONE-FEW) Urine Bacteria RARE (NEGATIVE) Digoxin (0.9-2.0) ng/mL 04/13/19 04/13/19 Range/Units 05:55 05:55 WBC 14.11 H (4.0-11.0) K/uL RBC 4.28 L (4.30-5.90) M/uL Hgb 12.9 (12.0-16.0) g/dL Hct 38.2 (36.0-46.0) % MCV 89.3 (80.0-98.0) fL MCH 30.1 (27.0-32.0) pg MCHC 33.8 (31.0-37.0) g/dL RDW Std Deviation 45.9 (28.0-62.0) fl RDW Coeff of Rkisten 14 (11.0-15.0) % Plt Count 243 (150-400) K/uL MPV 10.60 (7.40-12.00) fL Neut % (Auto) 69.3 (48.0-80.0) % Lymph % (Auto) 15.8 L (16.0-40.0) % [place] % (Auto) 14.3 (0.0-15.0) % Eos % (Auto) 0.4 (0.0-7.0) % Baso % (Auto) 0.2 (0.0-1.5) % Neut # (Auto) 9.8 H (1.4-5.7) K/uL Lymph # (Auto) 2.2 (0.6-2.4) K/uL [place] # (Auto) 2.0 H (0.0-0.8) K/uL Eos # (Auto) 0.1 (0.0-0.7) K/uL Baso # (Auto) 0.0 (0.0-0.1) K/uL Nucleated RBC % 0.0 /100WBC Nucleated RBCs # 0 K/uL Sodium (136-145) mmol/L Potassium (3.5-5.1) mmol/L Chloride (98-107) mmol/L Carbon Dioxide (21.0-32.0) mmol/L BUN (7.0-18.0) mg/dL Creatinine (0.6-1.0) mg/dL Est Cr Clr Drug Dosing mL/min Estimated GFR (MDRD) ml/min Glucose (74-106) mg/dL Hemoglobin A1c 6.0 (4.5-6.2) % Calcium (8.5-10.1) mg/dL Magnesium (1.8-2.4) mg/dL Total Bilirubin (0.2-1.0) mg/dL AST (15-37) IU/L ALT (14-63) IU/L Alkaline Phosphatase (46-116) U/L Troponin I (0.000-0.056) ng/mL B-Natriuretic Peptide (<100) PG/ML Total Protein (6.4-8.2) g/dL Albumin (3.4-5.0) g/dL Globulin (2.6-4.0) g/dL Albumin/Globulin Ratio (0.9-1.6) Triglycerides (0-200) mg/dL Cholesterol (50-200) mg/dL LDL Cholesterol, Calc (60-180) mg/dL VLDL Cholesterol (5-55) mg/dL HDL Cholesterol (40-60) mg/dL Cholesterol/HDL Ratio (3.3-6.0) TSH 3rd Generation (0.36-3.74) uIU/mL Urine Color Urine Appearance Urine pH (5.0-8.0) Ur Specific [place] (1.001-1.035) Urine Protein (NEGATIVE) mg/dL Urine Glucose (UA) (NEGATIVE) mg/dL Urine Ketones (NEGATIVE) mg/dL Urine Occult Blood (NEGATIVE) Urine Nitrite (NEGATIVE) Urine Bilirubin (NEGATIVE) Urine Urobilinogen (<2.0) EU/dL Ur Leukocyte Esterase (NEGATIVE) Urine RBC (0-2/HPF) Urine WBC (0-5/HPF) Ur Epithelial Cells (NONE-FEW) Urine Bacteria (NEGATIVE) Digoxin (0.9-2.0) ng/mL Rob Results Last 24 Hours: Microbiology 04/12/19 22:00 Influenza Type A Antigen Screen - Final Nasopharyngeal Swab NEGATIVE INFLUENZA A VIRUS AG REFERENCE RANGE: NEGATIVE Influenza Type B Antigen Screen - Final NEGATIVE INFLUENZA B VIRUS AG REFERENCE RANGE: NEGATIVE Med Orders - Current: Current Medications Acetaminophen (Tylenol Extra Strength) 500 mg PO Q6H PRN PRN Reason: Pain Apixaban (Eliquis) 2.5 mg PO BID [facility] Last Admin: 04/13/19 08:08 Dose: 2.5 mg Benzocaine/Menthol (Cepacol Sore Throat) 1 lozenge MUCMEM Q4H PRN PRN Reason: Sore Throat Digoxin (Lanoxin) 125 mcg PO DAILY [facility] Last Admin: 04/13/19 08:09 Dose: 125 mcg Diltiazem HCl (Cardizem Cd) 360 mg PO DAILY [facility] Last Admin: 04/13/19 08:10 Dose: 360 mg Docusate Sodium (Colace) 100 mg PO BID PRN PRN Reason: Constipation Famotidine (Pepcid) 20 mg PO DAILY [facility] Last Admin: 04/13/19 08:09 Dose: 20 mg Doxycycline Hyclate 100 mg/ (Sodium Chloride) 100 mls @ 100 mls/hr IV Q12H [facility] Last Admin: 04/13/19 05:16 Dose: 100 mls/hr Ceftriaxone Sodium 1 gm/ (Sodium Chloride) 50 mls @ 100 mls/hr IV Q24H [facility] Levalbuterol HCl (Xopenex) 1.25 mg NEB Q6HRRT PRN PRN Reason: Wheezing Ondansetron HCl (Zofran Odt) 4 mg PO Q4H PRN PRN Reason: nausea, able to take PO Ondansetron HCl (Zofran) 4 mg IVPUSH Q4H PRN PRN Reason: Nausea Oseltamivir Phosphate (Oseltamivir Phosphate) 30 mg PO BID [facility] Last Admin: 04/13/19 08:09 Dose: 30 mg Budesonide/Formoterol 160-4.5 Mcg/Puff 6 Gm InhalerPtom 0 each INH BID [facility] Last Admin: 04/13/19 08:11 Dose: 1 each Polyethylene Glycol (Miralax) 17 gm PO DAILY PRN PRN Reason: Constipation Discontinued Medications Digoxin (Lanoxin) 250 mcg IVPUSH ONETIME ONE Stop: 04/12/19 19:42 Last Admin: 04/12/19 21:11 Dose: 250 mcg Diltiazem HCl (Diltiazem) 10 mg IVPUSH ONETIME ONE Stop: 04/12/19 15:01 Last Admin: 04/12/19 15:05 Dose: 10 mg Diltiazem HCl (Diltiazem) 10 mg IVPUSH ONETIME ONE Stop: 04/12/19 15:22 Last Admin: 04/12/19 15:30 Dose: 10 mg Diltiazem HCl (Diltiazem) 20 mg IVPUSH ONETIME ONE Stop: 04/12/19 17:00 Last Admin: 04/12/19 18:10 Dose: 20 mg Diltiazem HCl (Cardizem Cd) 360 mg PO DAILY [facility] Famotidine (Pepcid) 20 mg PO BID [facility] Furosemide (Lasix) 20 mg IVPUSH NOW ONE Stop: 04/12/19 17:15 Last Admin: 04/12/19 18:17 Dose: 20 mg Furosemide (Lasix) 20 mg IVPUSH ONETIME ONE Stop: 04/13/19 08:01 Last Admin: 04/13/19 08:10 Dose: 20 mg Levofloxacin/Dextrose 500 mg/ (Premix) 100 mls @ 100 mls/hr IV ONETIME ONE Stop: 04/12/19 17:22 Levofloxacin/Dextrose 750 mg/ (Premix) 150 mls @ 100 mls/hr IV DAILY [facility] Ceftriaxone Sodium 1 gm/ (Sodium Chloride) 50 mls @ 100 mls/hr IV Q24H [facility] Last Admin: 04/12/19 18:20 Dose: 100 mls/hr Magnesium Sulfate 2 gm/ Premix 50 mls @ 25 mls/hr IV ONETIME ONE Stop: 04/12/19 19:31 Last Admin: 04/12/19 21:38 Dose: Not Given Magnesium Sulfate 2 gm/ Premix 50 mls @ 25 mls/hr IV ONETIME ONE Stop: 04/12/19 23:29 Last Admin: 04/12/19 21:33 Dose: 25 mls/hr Levalbuterol HCl (Xopenex) 1.25 mg NEB ONETIME ONE Stop: 04/12/19 17:04 Last Admin: 04/12/19 18:04 Dose: 1.25 mg Oseltamivir Phosphate (Tamiflu) 30 mg PO BID [facility] Last Admin: 04/13/19 02:02 Dose: Not Given Potassium Chloride (Klor-Con M20) 40 meq PO ONETIME ONE Stop: 04/13/19 07:22 Last Admin: 04/13/19 08:10 Dose: 40 meq - Exam Quality Assessment: Supplemental Oxygen General: Alert, Oriented, Cooperative Lungs: Clear to Auscultation, Normal Respiratory Effort, Rhonchi Cardiovascular: Regular Rate, Irregular Rhythm GI/Abdominal Exam: Normal Bowel Sounds, Soft, Non-Tender Extremities: Normal Inspection, No Pedal Edema Skin: Warm, Dry Sepsis Event Note - Evaluation Sepsis Screening Result: No Definite Risk - Focused Exam Vital Signs: Vital Signs Temp Pulse Pulse Resp BP Pulse Ox Pulse Ox 04/13/19 11:35 37.2 C 90 18 111/58 L 93 L 04/13/19 09:00 93 L 04/13/19 08:09 82 04/13/19 07:05 36.3 C 82 18 123/68 93 L 04/13/19 04:00 37.2 C 89 18 118/72 94 L Date Exam was Performed: 04/13/19 Time Exam was Performed: 14:20 - Problem List Review Problem List Initiated/Reviewed/Updated: Yes - My Orders Last 24 Hours: My Active Orders 04/12/19 16:54 Height and Weight [RC] DAILY Oxygen Therapy [RC] PRN Up With Assistance [RC] ASDIRECTED VTE/DVT Education [RC] PER UNIT ROUTINE Vital Signs [RC] Q4H Docusate Sodium [Colace] 100 mg PO BID PRN Ondansetron [Zofran ODT] 4 mg PO Q4H PRN Ondansetron [Zofran] 4 mg IVPUSH Q4H PRN polyethylene glycoL 3350 [MiraLAX] 17 gm PO DAILY PRN Resuscitation Status Routine 04/12/19 17:00 Telemetry Monitoring [Cardiac Monitoring] [RC] Q8H 04/12/19 17:01 levalbuterol HCL [Xopenex] 1.25 mg NEB Q6HRRT PRN 04/12/19 17:03 RT Aerosol Therapy [RC] ASDIRECTED RT Aerosol Therapy [RC] ASDIRECTED 04/12/19 17:05 Acetaminophen [Tylenol Extra Strength] 500 mg PO Q6H PRN 04/12/19 17:13 Intake and Output Strict [RC] Q12H 04/12/19 17:30 Doxycycline [Vibramycin] 100 mg Sodium Chloride 0.9% [Normal Saline] 100 ml IV Q12H 04/12/19 18:32 CULTURE URINE [RM] Routine 04/12/19 21:00 Apixaban [Eliquis] 2.5 mg PO BID Patient's Own Medication [Ptom] 0 each INH BID 04/12/19 Dinner Heart Healthy Diet [DIET] 04/13/19 07:23 Consult to Physical Therapy [PT Evaluation and Treatment] [CONS] Routine 04/13/19 09:00 Digoxin [Lanoxin] 125 mcg PO DAILY Famotidine [Pepcid] 20 mg PO DAILY 04/13/19 11:05 Benzocaine/Cetylpyrd/Menthol [Cepacol Sore Throat] 1 lozenge MUCMEM Q4H PRN 04/13/19 18:30 cefTRIAXone [Rocephin] 1 gm Sodium Chloride 0.9% [Normal Saline] 50 ml IV Q24H 04/13/19 Breakfast Fluid Restriction [DIET] 04/14/19 05:11 CBC WITH AUTO DIFF [HEME] AM COMPREHENSIVE METABOLIC PN,CMP [CHEM] AM 04/15/19 05:11 CBC WITH AUTO DIFF [HEME] AM COMPREHENSIVE METABOLIC PN,CMP [CHEM] AM - Plan Plan:: A: 1. Community acquired pneumonia 2. Acute CHF exacerbation 3. Afib, rate controlled, on Eliquis 4. Hypokalemia 5. PMH COPD P: 1. Continue with Ceftriaxone and Doxycycline for CAP. Wean off O2 as tolerated. Fluid restriction 2 L, strict I/O. Will replace potassium. Continue home meds for Afib. dispo: likely dc tomorrow
[2019-04-13] MEDS ORDERED: cefTRIAXone 1 GM in Sodium Chloride 0.9% 50 ML IV SCH (18:30)
[2019-04-14] MEDS: Doxycycline 100 MG in Sodium Chloride 0.9% 100 ML IV SCH (05:05)
[2019-04-14 06:40] LABS: BLOOD UREA NITROGEN,BUN 13 mg/dL (7.0-18.0); CARBON DIOXIDE,CO2 30.9 mmol/L (21.0-32.0); CHLORIDE,CL 101 mmol/L (98-107); GLUCOSE RANDOM 114 mg/dL (74-106); POTASSIUM,K 3.9 mmol/L (3.5-5.1); SODIUM,NA 137 mmol/L (136-145)
[2019-04-14] MEDS: Apixaban 5 MG Tab PO SCH (08:39)
[2019-04-14] MEDS: Oseltamivir Phosphate 30 MG Capsule PO SCH (08:40)
[2019-04-14] MEDS: Famotidine 20 MG Tab PO SCH (08:40)
[2019-04-14] MEDS: Diltiazem 180 MG Cap.CD PO SCH (08:40)
[2019-04-14] MEDS: BUDESONIDE INH SCH (08:41)
[2019-04-14] MEDS: FORMOTEROL INH SCH (08:41)
[2019-04-14] MEDS: Digoxin 125 MCG Tab PO SCH (08:41)
[2019-04-14 11:32] VITALS: BP 110/62; PULSE 80
--- NOTE | 2019-04-14 12:39 | PCM.DCSUM1 ---
Discharge Summary - Hospital Course Diagnosis: Stroke: No - Discharge Data Discharge Disposition: Home, Self-Care 01 Condition: Fair - Referral to Home Health Primary Care Physician: Reinier Rodriguez MD - Patient Summary/Data Consults: Consultations 04/13/19 07:23 Consult to Physical Therapy [PT Evaluation and Treatment] [CONS] Routine - Discharge Plan *PRESCRIPTION DRUG MONITORING PROGRAM REVIEWED*: No *COPY OF PRESCRIPTION DRUG MONITORING REPORT IN PATIENT MARCO A: No Prescriptions/Med Rec: Amoxicillin 500 mg PO TID #30 capsule Docusate Sodium [Colace] 100 mg PO BID PRN #30 cap PRN Reason: Constipation Doxycycline Monohydrate [Avidoxy] 100 mg PO BID 10 Days #10 tablet Ondansetron [Zofran ODT] 4 mg PO Q4H PRN #10 tab.dis PRN Reason: nausea, able to take PO Oseltamivir Phosphate 30 mg PO BID #3 cap Home Medications: Home Meds Apixaban [Eliquis] 0.5 tab PO BID 10/17/16 [History] Budesonide/Formoterol Fumarate [Symbicort 160-4.5 Mcg Inhaler] 2 puff INH BID [History] dilTIAZem HCL [Diltiazem 24Hr ER (Xr)] 360 mg PO DAILY 12/08/16 [History] Albuterol [Ventolin HFA] 2 puff INH ASDIRECTED 03/22/17 [History] Digoxin [Digox] 125 mcg PO DAILY 03/22/17 [History] Famotidine [Pepcid] 20 mg PO BID 03/22/17 [History] Potassium Chloride 10 meq PO DAILY 03/22/17 [History] Simethicone [Gas-X] 1 tab CHEW BID 03/22/17 [History] Carboxymethylcellulose Sodium [Thera Tears] 1 - 2 drop EYEBOTH BID PRN 04/12/19 [History] Furosemide 20 mg PO DAILY 04/12/19 [History] L.acidoph,Paracasei, B.lactis [Probiotic] 2 each PO BID 04/12/19 [History] Multivitamin with Minerals [Hair, Skin and Nails] 2 each PO DAILY 04/12/19 [ History] Amoxicillin 500 mg PO TID #30 capsule 04/14/19 [Rx] Docusate Sodium [Colace] 100 mg PO BID PRN #30 cap 04/14/19 [Rx] Doxycycline Monohydrate [Avidoxy] 100 mg PO BID 10 Days #10 tablet 04/14/19 [Rx] Ondansetron [Zofran ODT] 4 mg PO Q4H PRN #10 tab.dis 04/14/19 [Rx] Oseltamivir Phosphate 30 mg PO BID #3 cap 04/14/19 [Rx] Patient Handouts: Docusate Sodium; Senna tablets or capsules, Influenza, Adult , [id number], Ondansetron tablets, Amoxicillin capsules or tablets, Doxycycline tablets or capsules, Oseltamivir capsules, Community-Acquired Pneumonia, Adult, [id number] Referrals: Reinier Rodriguez MD [Primary Care Provider] - - Patient Data Vitals - Most Recent: Last Vital Signs Temp 36.9 C 04/14/19 11:30 Pulse 80 04/14/19 11:30 Resp 18 04/14/19 11:30 BP 110/62 04/14/19 11:30 Pulse Ox 94 L 04/14/19 11:30 Weight - Most Recent: 59.6 kg I&O - Last 24 hours: Intake & Output 04/13/19 04/14/19 04/14/19 22:59 06:59 14:59 Intake Total 500 700 Output Total 600 1050 Balance -100 -350 Lab Results - Last 24 hrs: Laboratory Results - last 24 hr 04/14/19 04/14/19 Range/Units 06:15 06:15 WBC 9.52 (4.0-11.0) K/uL RBC 4.10 L (4.30-5.90) M/uL Hgb 12.3 (12.0-16.0) g/dL Hct 37.0 (36.0-46.0) % MCV 90.2 (80.0-98.0) fL MCH 30.0 (27.0-32.0) pg MCHC 33.2 (31.0-37.0) g/dL RDW Std Deviation 46.6 (28.0-62.0) fl RDW Coeff of Kristen 14 (11.0-15.0) % Plt Count 263 (150-400) K/uL MPV 10.10 (7.40-12.00) fL Neut % (Auto) 62.4 (48.0-80.0) % Lymph % (Auto) 20.1 (16.0-40.0) % Long % (Auto) 15.7 H (0.0-15.0) % Eos % (Auto) 1.5 (0.0-7.0) % Baso % (Auto) 0.3 (0.0-1.5) % Neut # (Auto) 6.0 H (1.4-5.7) K/uL Lymph # (Auto) 1.9 (0.6-2.4) K/uL Long # (Auto) 1.5 H (0.0-0.8) K/uL Eos # (Auto) 0.1 (0.0-0.7) K/uL Baso # (Auto) 0.0 (0.0-0.1) K/uL Nucleated RBC % 0.0 /100WBC Nucleated RBCs # 0 K/uL Sodium 137 (136-145) mmol/L Potassium 3.9 (3.5-5.1) mmol/L Chloride 101 (98-107) mmol/L Carbon Dioxide 30.9 (21.0-32.0) mmol/L BUN 13 (7.0-18.0) mg/dL Creatinine 0.7 (0.6-1.0) mg/dL Est Cr Clr Drug Dosing 57.01 mL/min Estimated GFR (MDRD) > 60.0 ml/min Glucose 114 H (74-106) mg/dL Calcium 9.3 (8.5-10.1) mg/dL Total Bilirubin 0.6 (0.2-1.0) mg/dL AST 78 H (15-37) IU/L ALT 69 H (14-63) IU/L Alkaline Phosphatase 94 (46-116) U/L Total Protein 6.5 (6.4-8.2) g/dL Albumin 2.0 L (3.4-5.0) g/dL Globulin 4.5 H (2.6-4.0) g/dL Albumin/Globulin Ratio 0.4 L (0.9-1.6) KATHRINE Results - Last 24 hrs: Microbiology 04/12/19 18:32 Urine Culture - Final Urine, Clean Catch MIXED ELISE 10,000-100,000 CFU/ML Med Orders - Current: Current Medications Acetaminophen (Tylenol Extra Strength) 500 mg PO Q6H PRN PRN Reason: Pain Apixaban (Eliquis) 2.5 mg PO BID [facility] Last Admin: 04/14/19 08:39 Dose: 2.5 mg Benzocaine/Menthol (Cepacol Sore Throat) 1 lozenge MUCMEM Q4H PRN PRN Reason: Sore Throat Digoxin (Lanoxin) 125 mcg PO DAILY [facility] Last Admin: 04/14/19 08:41 Dose: 125 mcg Diltiazem HCl (Cardizem Cd) 360 mg PO DAILY [facility] Last Admin: 04/14/19 08:40 Dose: 360 mg Docusate Sodium (Colace) 100 mg PO BID PRN PRN Reason: Constipation Famotidine (Pepcid) 20 mg PO DAILY [facility] Last Admin: 04/14/19 08:40 Dose: 20 mg Doxycycline Hyclate 100 mg/ (Sodium Chloride) 100 mls @ 100 mls/hr IV Q12H [facility] Last Admin: 04/14/19 05:05 Dose: 100 mls/hr Ceftriaxone Sodium 1 gm/ (Sodium Chloride) 50 mls @ 100 mls/hr IV Q24H [facility] Last Admin: 04/13/19 18:30 Dose: 100 mls/hr Levalbuterol HCl (Xopenex) 1.25 mg NEB Q6HRRT PRN PRN Reason: Wheezing Ondansetron HCl (Zofran Odt) 4 mg PO Q4H PRN PRN Reason: nausea, able to take PO Ondansetron HCl (Zofran) 4 mg IVPUSH Q4H PRN PRN Reason: Nausea Oseltamivir Phosphate (Oseltamivir Phosphate) 30 mg PO BID [facility] Last Admin: 04/14/19 08:40 Dose: 30 mg Budesonide/Formoterol 160-4.5 Mcg/Puff 6 Gm InhalerPtom 0 each INH BID [facility] Last Admin: 04/14/19 08:41 Dose: 1 each Polyethylene Glycol (Miralax) 17 gm PO DAILY PRN PRN Reason: Constipation Discontinued Medications Digoxin (Lanoxin) 250 mcg IVPUSH ONETIME ONE Stop: 04/12/19 19:42 Last Admin: 04/12/19 21:11 Dose: 250 mcg Diltiazem HCl (Diltiazem) 10 mg IVPUSH ONETIME ONE Stop: 04/12/19 15:01 Last Admin: 04/12/19 15:05 Dose: 10 mg Diltiazem HCl (Diltiazem) 10 mg IVPUSH ONETIME ONE Stop: 04/12/19 15:22 Last Admin: 04/12/19 15:30 Dose: 10 mg Diltiazem HCl (Diltiazem) 20 mg IVPUSH ONETIME ONE Stop: 04/12/19 17:00 Last Admin: 04/12/19 18:10 Dose: 20 mg Diltiazem HCl (Cardizem Cd) 360 mg PO DAILY [facility]FIE Famotidine (Pepcid) 20 mg PO BID ALFIE Furosemide (Lasix) 20 mg IVPUSH NOW ONE Stop: 04/12/19 17:15 Last Admin: 04/12/19 18:17 Dose: 20 mg Furosemide (Lasix) 20 mg IVPUSH ONETIME ONE Stop: 04/13/19 08:01 Last Admin: 04/13/19 08:10 Dose: 20 mg Levofloxacin/Dextrose 500 mg/ (Premix) 100 mls @ 100 mls/hr IV ONETIME ONE Stop: 04/12/19 17:22 Levofloxacin/Dextrose 750 mg/ (Premix) 150 mls @ 100 mls/hr IV DAILY [facility] Ceftriaxone Sodium 1 gm/ (Sodium Chloride) 50 mls @ 100 mls/hr IV Q24H [facility] Last Admin: 04/12/19 18:20 Dose: 100 mls/hr Magnesium Sulfate 2 gm/ Premix 50 mls @ 25 mls/hr IV ONETIME ONE Stop: 04/12/19 19:31 Last Admin: 04/12/19 21:38 Dose: Not Given Magnesium Sulfate 2 gm/ Premix 50 mls @ 25 mls/hr IV ONETIME ONE Stop: 04/12/19 23:29 Last Admin: 04/12/19 21:33 Dose: 25 mls/hr Levalbuterol HCl (Xopenex) 1.25 mg NEB ONETIME ONE Stop: 04/12/19 17:04 Last Admin: 04/12/19 18:04 Dose: 1.25 mg Oseltamivir Phosphate (Tamiflu) 30 mg PO BID [facility] Last Admin: 04/13/19 02:02 Dose: Not Given Potassium Chloride (Klor-Con M20) 40 meq PO ONETIME ONE Stop: 04/13/19 07:22 Last Admin: 04/13/19 08:10 Dose: 40 meq
[2019-04-14] MEDS ORDERED: Doxycycline 100 MG Cap PO ONE (15:32)
[2019-04-14] MEDS ORDERED: Oseltamivir Phosphate 30 MG Capsule PO ONE (15:33)
== END 2019-04-14 15:50 | disposition home or self-care (01) | DRG 194 ==
LOC: MW.ED 14:44 → MW.MS 16:32
PROVIDERS: ADMIT Student in an Organized Health Care Education/Training Program; ATTEND Student in an Organized Health Care Education/Training Program
DX: J18.9 Pneumonia, unspecified organism (principal); J44.0 Chronic obstructive pulmonary disease with (acute) lower respiratory infection; I48.91 Unspecified atrial fibrillation; I50.9 Heart failure, unspecified; I25.10 Atherosclerotic heart disease of native coronary artery without angina pectoris; H54.7 Unspecified visual loss; J44.9 Chronic obstructive pulmonary disease, unspecified; I11.0 Hypertensive heart disease with heart failure; K21.9 Gastro-esophageal reflux disease without esophagitis; M19.90 Unspecified osteoarthritis, unspecified site; M54.9 Dorsalgia, unspecified; G89.29 Other chronic pain; E83.42 Hypomagnesemia; E87.6 Hypokalemia; F41.9 Anxiety disorder, unspecified; F32.9 Major depressive disorder, single episode, unspecified; Z90.49 Acquired absence of other specified parts of digestive tract; Z90.710 Acquired absence of both cervix and uterus; Z79.01 Long term (current) use of anticoagulants; Z90.79 Acquired absence of other genital organ(s); Z90.721 Acquired absence of ovaries, unilateral; Z88.1 Allergy status to other antibiotic agents; Z88.8 Allergy status to other drugs, medicaments and biological substances; Z79.51 Long term (current) use of inhaled steroids; Z79.899 Other long term (current) drug therapy; Z99.81 Dependence on supplemental oxygen
CPT/HCPCS: 36415; 70450; 71045; 80053; 80162; 83735; 83880; 84443; 84484; 85025; J3490 ×2; 80061; 81001; 83036; 87086; 87804; 93005; 96374; 97161-GP; 99285-25; A9270-GY; J0696; J1160; J1940; J3475; J7050; J7612-GY

== ENCOUNTER 2024-12-17 13:18 | Emergency (ER) | payer MEDICARE, BC ==
[2024-12-17 14:03] LABS: BASOPHILS ABSOLUTE AUTO 0.05 K/uL (0.00-0.20); BASOPHILS PERCENT AUTO 0.6 % (0.0-1.0); EOSINOPHILS ABSOLUTE AUTO 0.04 K/uL (0.00-0.45); EOSINOPHILS PERCENT AUTO 0.5 % (0.0-6.0); IMMATURE GRAN ABSOLUTE AUTO 0.02 K/uL (0.00-0.05); IMMATURE GRAN PERCENT AUTO 0.3 % (0.0-0.4); LYMPHOCYTES ABSOLUTE AUTO 1.87 K/uL (1.00-4.80); LYMPHOCYTES PERCENT AUTO 23.7 % (24.0-44.0); MEAN PLATELET VOLUME 9.6 fL (9.4-12.3); MONOCYTES ABSOLUTE AUTO 0.74 K/uL (0.00-0.80); MONOCYTES PERCENT AUTO 9.4 % (0.0-8.0); NEUTROPHILS ABSOLUTE AUTO 5.18 K/uL (1.80-7.70); NEUTROPHILS PERCENT AUTO 65.5 % (41.0-71.0); NRBC ABSOLUTE 0.00 K/uL (0.00-0.02); NRBC PERCENT 0.0 /100WBC (0.0-0.2); PLATELET COUNT,PLT 219 K/uL (150-400); RED BLOOD CELL COUNT 4.56 M/uL (4.10-5.30); WHITE BLOOD CELL COUNT,WBC 7.90 K/uL (3.9-11.3)
[2024-12-17 14:36] LABS: A/G RATIO 0.9 (0.9-1.6); ALANINE AMINOTRANSFERASE,ALT 22.0 IU/L (14-63); ASPARTATE AMNIOTRANSFERASE,AST 24.0 IU/L (15-37); BILIRUBIN TOTAL 0.6 mg/dL (0.2-1.0); BLOOD UREA NITROGEN,BUN 16.0 mg/dL (7.0-18.0); CARBON DIOXIDE,CO2 32.6 mmol/L (21.0-32.0); CHLORIDE,CL 100.0 mmol/L (98-107); CREATININE 1.0 mg/dL (0.6-1.0); EST CRCL DRUG DOSING (CG) 30.35 mL/min; GLUCOSE RANDOM 110.0 mg/dL (74-106); POTASSIUM,K 4.1 mmol/L (3.5-5.1); PROTEIN TOTAL,TP 7.7 g/dL (6.4-8.2); SODIUM,NA 139.0 mmol/L (136-145)
[2024-12-17 14:44] LABS: ESTIMATED GFR 54.0 mL/min (>60)
[2024-12-17 15:54] VITALS: BP 110/67; PULSE 64
== END 2024-12-17 15:54 | disposition home or self-care (01) ==
LOC: MW.ED 13:18
DX: R53.1 Weakness (principal); I48.91 Unspecified atrial fibrillation; I10 Essential (primary) hypertension; J44.89 Other specified chronic obstructive pulmonary disease; Z86.16 Personal history of COVID-19; Z90.49 Acquired absence of other specified parts of digestive tract; Z90.710 Acquired absence of both cervix and uterus; Z88.1 Allergy status to other antibiotic agents; Z88.8 Allergy status to other drugs, medicaments and biological substances; Z79.01 Long term (current) use of anticoagulants; Z79.899 Other long term (current) drug therapy; Z75.3 Unavailability and inaccessibility of health-care facilities
CPT/HCPCS: 36415; 80053; 85025; 93005; 99283; 99284